=== PATIENT | female | born 1940 | race Caucasian/White ===

== ENCOUNTER 2017-01-05 21:50 | Emergency (ER) | payer MEDICARE, BC ==
[2017-01-06 00:39] LABS: Hematocrit 44 % (35-47); Hemoglobin 15.1 g/dl (12.0-16.0); Mean Corpuscular HGB Conc 34 g/dl (31-36); Mean Corpuscular Hemoglobin 30 pg (27-31); Mean Corpuscular Volume 88 fL (80-97); Mean Platelet Volume 8 um3 (7.4-10.4); Red Cell Distribution Width 13 % (10.5-15); White Blood Count 11.1 10^3/ul (3.5-10.8)
[2017-01-06 00:41] LABS: ALT 17 U/L (7-52); AST 15 U/L (13-39); Albumin 4.5 g/dL (3.2-5.2); Alkaline Phosphatase 67 U/L (34-104); Anion Gap 7 mmol/L (2-11); BUN/Creatinine Ratio 20.7 (8-20); Blood Urea Nitrogen 17 mg/dL (6-24); CO2 Carbon Dioxide 27 mmol/L (22-32); Chloride 99 mmol/L (101-111); EGFR African American 86.9 (>60); EGFR Non-African American 67.6 (>60); Globulin 3.1 g/dL (2-4); Glucose 257 mg/dL (70-100); Potassium 3.8 mmol/L (3.5-5.0); Sodium 133 mmol/L (133-145); Total Protein 7.6 g/dL (6.4-8.9)
[2017-01-06 00:53] LABS: Acetaminophen < 15 mcg/mL; Alcohol < 10 mg/dL (<10); Salicylate < 2.50 mg/dL (<30)
[2017-01-06] MEDS ORDERED: Acetaminophen TAB* 325 MG PO ONE (00:53)
[2017-01-06 01:03] LABS: TSH (Thyroid Stimulating Horm) 1.71 mcIU/mL (0.34-5.60)
[2017-01-06 01:04] LABS: Urine Bacteria 2+ (Absent); Urine Bilirubin Negative (Negative); Urine Glucose 3+(>=500 mg/dL) (Negative); Urine Nitrite Positive (Negative)
[2017-01-06 01:08] LABS: Benzodiazepine Urine Screen None Detected (None Detect)
[2017-01-06] MEDS ORDERED: diPHENhydraMINE PO* 25 MG PO ONE (03:52)
[2017-01-06] MEDS ORDERED: diPHENhydraMINE PO* 50 MG ONE (03:54)
--- NOTE | 2017-01-06 06:18 | ED ---
Kuldeep Jensen Adam, scribed for Amor Philippe on 01/05/17 at 2307 . Psychiatric Complaint - HPI Summary HPI Summary: Pt is a 76 year old female presenting with SI. She states that she got into a fight with her 's doctor at approximately 19:00 and became angry and frustrated. She states that she said she wanted to kill herself because the doctor would not listen to her. She denies having any suicidal thoughts at this time. She feels very tired but denies any CP, SOB, or any other complaints. She denies any PMHx or FMHx and she denies any Hx of alcohol/tobacco/drug use. - History Of Current Complaint Chief Complaint: EDMentalHealth Time Seen by Provider: 01/05/17 22:40 Hx Obtained From: Patient Onset/Duration: Sudden Onset, Lasting Hours, Resolved Timing: Constant Severity Initially: Moderate Severity Currently: None Character: Angry, Frustrated Aggravating Factor(s): Recent Stress - Conflict with her 's doctor Alleviating Factor(s): Other - Time Associated Signs And Symptoms: Positive: Hostile Has Suicidal: Reports: Thoughts - Allergies/Home Medications Allergies/Adverse Reactions: Allergies Allergy/AdvReac Type Severity Reaction Status Date / Time Sulfa Antibiotics Allergy Unknown Verified 01/05/17 22:24 Reaction Details PMH/Surg Hx/FS Hx/Imm Hx Previously Healthy: Yes Cardiovascular History: Denies: Hx Myocardial Infarction Respiratory History: Denies: Hx Asthma, Hx Bronchopulmonary Dysplasia, Hx Chronic Bronchitis, Hx Chronic Obstructive Pulmonary Disease (COPD), Hx Cystic Fibrosis, Hx Lung Cancer , Hx Pleural Effusion, Hx Pneumonia, Hx Pulmonary Edema, Hx Pulmonary Embolism, Hx Seasonal Allergies, Hx Sleep Apnea, Other Respiratory Problems/Disorders - Cancer History Hx Chemotherapy: No Hx Radiation Therapy: No Infectious Disease History: No Infectious Disease History: Denies: Traveled Outside the [place] in Last 30 Days - Family History Known Family History: Positive: None - Pt denies any FMHx - Social History Occupation: Retired Lives: With Family - Alcohol Use: None Alcohol Amount: denies Hx Substance Use: No Substance Use Type: Reports: None Substance Use Comment - Amount & Last Used: denies Hx Tobacco Use: No Smoking Status (MU): Never Smoked Tobacco Review of Systems Positive: Fatigue. Negative: Fever Negative: Chest Pain Negative: Shortness Of Breath All Other Systems Reviewed And Are Negative: Yes Physical Exam Triage Information Reviewed: Yes Vital Signs On Initial Exam: Initial Vitals Temp Pulse Resp BP Pulse Ox 97.8 F 96 16 2070/75 98 01/05/17 22:10 01/05/17 22:10 01/05/17 22:10 01/05/17 22:10 01/05/17 22:10 Vital Signs Reviewed: Yes Appearance: Positive: Well-Appearing, No Pain Distress Skin: Positive: Warm, Skin Color Reflects Adequate Perfusion, Dry Head/Face: Positive: Normal Head/Face Inspection Eyes: Positive: EOMI, DAVON ENT: Positive: Normal ENT inspection Neck: Positive: Supple, Nontender Respiratory/Lung Sounds: Positive: Clear to Auscultation, Breath Sounds Present Cardiovascular: Positive: RRR, Pulses are Symmetrical in both Upper and Lower Extremities Abdomen Description: Positive: Nontender, Soft Bowel Sounds: Positive: Present Musculoskeletal: Positive: Normal, Strength/ROM Intact - [place] Coma Scale Coma Scale Total: 15 Diagnostics - Vital Signs Vital Signs Temp Pulse Resp BP Pulse Ox 01/05/17 22:10 97.8 F 96 16 2069/ 98 - Laboratory Result Diagrams: 01/06/17 00:00 01/06/17 00:00 Lab Statement: Any lab studies that have been ordered have been reviewed, and results considered in the medical decision making process. - Additional Comments Diagnostic Additional Comments: Troponin I - 0.00 Course/Dx - Differential Dx/Clinical Impression Provider Diagnosis: Suicidal ideation Discharge - Discharge Plan Condition: Stable Disposition: OTHER Discharge Disposition Comment: Pending mental health evaluation Referrals: Juju Archer MD [Primary Care Provider] - The documentation as recorded by the Kuldeep kimbrough Adam accurately reflects the service I personally performed and the decisions made by me, Amor Philippe.
[2017-01-06] MEDS ORDERED: glipiZIDE TAB* 5 MG PO ONE (14:04)
[2017-01-06] MEDS ORDERED: metFORMIN* 500 MG TAB PO ONE (14:04)
[2017-01-06] MEDS ORDERED: Lisinopril TAB* 5 MG PO ONE (14:05)
[2017-01-06] MEDS ORDERED: Atenolol TAB* 50 MG PO ONE (14:06)
[2017-01-06 15:57] VITALS: BP 164/80
--- NOTE | 2017-01-08 07:30 | PN ---
Progress Note - Progress Note Note: Patient urine cultures grew 50-75,000. called patient and spoke with patient and is not having any UTI symptoms so will not treat as small amount cultured and likely contaminant.
== END 2017-01-06 15:57 | disposition home or self-care (01) ==
LOC: ED 21:50
DX: R45.851 Suicidal ideations (principal); R53.83 Other fatigue; R45.5 Hostility
CPT/HCPCS: 36415; 80053; 80307; 80320; 80329; 81003; 81015; 84443; 84484; 85025; 87077; 87086; 87186; 99283; A9270-GY; G0480

== ENCOUNTER 2017-09-04 19:59 | Inpatient (IN) | payer MEDICARE, BC ==
[2017-09-04 21:07] LABS: Hematocrit 38 % (35-47); Mean Corpuscular HGB Conc 34 g/dl (31-36); Mean Corpuscular Hemoglobin 30 pg (27-31); Mean Corpuscular Volume 87 fL (80-97); Mean Platelet Volume 7 um3 (7.4-10.4); Red Blood Count 4.35 10^6/ul (4.0-5.4); Red Cell Distribution Width 13 % (10.5-15); White Blood Count 7.5 10^3/ul (3.5-10.8)
[2017-09-04 21:25] LABS: ALT 12 U/L (7-52); AST 12 U/L (13-39); Albumin 3.8 g/dL (3.2-5.2); Alkaline Phosphatase 79 U/L (34-104); Anion Gap 6 mmol/L (2-11); BUN/Creatinine Ratio 19.2 (8-20); Blood Urea Nitrogen 15 mg/dL (6-24); CO2 Carbon Dioxide 28 mmol/L (22-32); Calcium 9.1 mg/dL (8.6-10.3); Chloride 105 mmol/L (101-111); EGFR African American 92.1 (>60); EGFR Non-African American 71.6 (>60); Globulin 2.6 g/dL (2-4); Glucose 273 mg/dL (70-100); Potassium 3.9 mmol/L (3.5-5.0); Sodium 139 mmol/L (133-145); Total Protein 6.4 g/dL (6.4-8.9)
[2017-09-04 21:46] LABS: Acetaminophen < 15 mcg/mL; Alcohol < 10 mg/dL (<10); Salicylate < 2.50 mg/dL (<30)
[2017-09-04 22:00] LABS: TSH (Thyroid Stimulating Horm) 1.32 mcIU/mL (0.34-5.60)
--- NOTE | 2017-09-04 22:10 | ED ---
Patricia Jensen Julia, scribed for Edy Salguero MD on 09/04/17 at 2022 . Psychiatric Complaint - HPI Summary HPI Summary: This patient is a 76 year old F brought in by police to [facility] with chief complaint of SI worse since earlier today. She reports "my said I was going to kill myself". The patient rates the pain 0/10 in severity. Symptoms alleviated by nothing. Patient denies history of mental health or use of medication. - History Of Current Complaint Time Seen by Provider: 09/04/17 20:06 Hx Obtained From: Patient Onset/Duration: Still Present Timing: Constant Alleviating Factor(s): Nothing Has Suicidal: Reports: Thoughts - Allergies/Home Medications Allergies/Adverse Reactions: Allergies Allergy/AdvReac Type Severity Reaction Status Date / Time Sulfa Antibiotics Allergy Unknown Verified 01/05/17 22:24 Reaction Details PMH/Surg Hx/FS Hx/Imm Hx Cardiovascular History: Denies: Hx Myocardial Infarction Respiratory History: Denies: Hx Asthma, Hx Bronchopulmonary Dysplasia, Hx Chronic Bronchitis, Hx Chronic Obstructive Pulmonary Disease (COPD), Hx Cystic Fibrosis, Hx Lung Cancer , Hx Pleural Effusion, Hx Pneumonia, Hx Pulmonary Edema, Hx Pulmonary Embolism, Hx Seasonal Allergies, Hx Sleep Apnea, Other Respiratory Problems/Disorders Psychiatric History: Denies: Hx Eating Disorder - Cancer History Hx Chemotherapy: No Hx Radiation Therapy: No - Family History Known Family History: Positive: Diabetes - brother Negative: Cardiac Disease - Social History Alcohol Use: None Alcohol Amount: denies Hx Substance Use: No Substance Use Type: Reports: None Substance Use Comment - Amount & Last Used: denies Hx Tobacco Use: No Smoking Status (MU): Never Smoked Tobacco Review of Systems Negative: Fever Positive: Other - SI All Other Systems Reviewed And Are Negative: Yes Physical Exam - Summary Physical Exam Summary: Appearance: The patient is well-nourished in no acute distress and in no acute pain. Skin: The skin is warm and dry and skin color reflects adequate perfusion. HEENT: The head is normocephalic and atraumatic. The pupils are equal and reactive. The conjunctivae are clear and without drainage. Nares are patent and without drainage. Mouth reveals moist mucous membranes and the throat is without erythema and exudate. The external ears are intact. The ear canals are patent and without drainage. The tympanic membranes are intact. Neck: the neck is supple with full range of motion and non-tender. There are no carotid bruits. There is no neck vein distension. Respiratory: Chest is non-tender. Lungs are clear to auscultation and breath sounds are symmetrical and equal. Cardiovascular: Heart is regular rate and rhythm. There is no murmur or rub auscultated. There is no peripheral edema and pulses are symmetrical and equal. Abdomen: The abdomen is soft and non-tender. There are normal bowel sounds heard in all four quadrants and there is no organomegaly palpated. Musculoskeletal: There is no back tenderness noted. Extremities are non-tender with full range of motion. There is good capillary refill. There is no peripheral edema or calf tenderness elicited. Neurological: Patient is alert and oriented to person, place and time. The patient has symmetrical motor strength in all four extremities. Cranial nerves are grossly intact. Deep tendon reflexes are symmetrical and equal in all four extremities. Psychiatric: The patient has an appropriate affect and does not exhibit any anxiety or depression. Triage Information Reviewed: Yes Vital Signs On Initial Exam: Initial Vitals Temp Pulse Resp BP Pulse Ox 97.6 F 88 18 151/72 97 09/04/17 20:00 09/04/17 20:00 09/04/17 20:00 09/04/17 20:00 09/04/17 20:00 Vital Signs Reviewed: Yes Diagnostics - Vital Signs Vital Signs Temp Pulse Resp BP Pulse Ox 09/04/17 20:00 97.6 F 88 18 151/72 97 - Laboratory Lab Results: Lab Results 09/04/17 09/04/17 Range/Units 20:55 20:55 WBC 7.5 (3.5-10.8) 10^3/ul RBC 4.35 (4.0-5.4) 10^6/ul Hgb 13.0 (12.0-16.0) g/dl Hct 38 (35-47) % MCV 87 (80-97) fL MCH 30 (27-31) pg MCHC 34 (31-36) g/dl RDW 13 (10.5-15) % Plt Count 225 (150-450) 10^3/ul MPV 7 L (7.4-10.4) um3 Neut % (Auto) 69.5 (38-83) % Lymph % (Auto) 18.6 L (25-47) % [place] % (Auto) 6.0 (1-9) % Eos % (Auto) 4.0 (0-6) % Baso % (Auto) 1.9 (0-2) % Absolute Neuts (auto) 5.2 (1.5-7.7) 10^3/ul Absolute Lymphs (auto) 1.4 (1.0-4.8) 10^3/ul Absolute Monos (auto) 0.4 (0-0.8) 10^3/ul Absolute Eos (auto) 0.3 (0-0.6) 10^3/ul Absolute Basos (auto) 0.1 (0-0.2) 10^3/ul Absolute Nucleated RBC 0 10^3/ul Nucleated RBC % 0 Sodium 139 (133-145) mmol/L Potassium 3.9 (3.5-5.0) mmol/L Chloride 105 (101-111) mmol/L Carbon Dioxide 28 (22-32) mmol/L Anion Gap 6 (2-11) mmol/L BUN 15 (6-24) mg/dL Creatinine 0.78 (0.51-0.95) mg/dL Est GFR ( Amer) 92.1 (>60) Est GFR (Non-Af Amer) 71.6 (>60) BUN/Creatinine Ratio 19.2 (8-20) Glucose 273 H (70-100) mg/dL Calcium 9.1 (8.6-10.3) mg/dL Total Bilirubin 0.40 (0.2-1.0) mg/dL AST 12 L (13-39) U/L ALT 12 (7-52) U/L Alkaline Phosphatase 79 (34-104) U/L Total Protein 6.4 (6.4-8.9) g/dL Albumin 3.8 (3.2-5.2) g/dL Globulin 2.6 (2-4) g/dL Albumin/Globulin Ratio 1.5 (1-3) TSH 1.32 (0.34-5.60) mcIU/mL Salicylates < 2.50 (<30) mg/dL Acetaminophen < 15 mcg/mL Serum Alcohol < 10 (<10) mg/dL Result Diagrams: 09/04/17 20:55 09/04/17 20:55 Lab Statement: Any lab studies that have been ordered have been reviewed, and results considered in the medical decision making process. Course/Dx - Course Course Of Treatment: Ms. Brown apparently has a paranoid dementia and threatens suicide when she is left alone. She has not been answering the phone or door or letting anyone in to check on her secondary to her paranoia. A 941 was filled out and she is here to have a MHE. She is medically cleared at this point with normal labs and is in the Flex Unit. - Differential Dx/Clinical Impression Provider Diagnosis: Senile paranoid dementia Discharge - Discharge Plan Condition: Stable Disposition: OTHER Discharge Disposition Comment: Signed out to Dr. Encinas at change of shift Referrals: Juju Archer MD [Primary Care Provider] - The documentation as recorded by the Patricia kimbrough Julia accurately reflects the service I personally performed and the decisions made by me, Edy Salguero MD.
[2017-09-05] MEDS ORDERED: Zolpidem TAB* 10 MG PO ONE (00:23)
[2017-09-05] MEDS ORDERED: NS 0.9% 1000 ML* 1,000 ML IV ONE (06:12)
[2017-09-05 08:18] LABS: Urine Bilirubin Negative (Negative); Urine Glucose Negative (Negative); Urine Nitrite Negative (Negative)
[2017-09-05 08:30] LABS: Benzodiazepine Urine Screen None Detected (None Detect)
--- NOTE | 2017-09-05 13:40 | PN ---
Progress Note - Progress Note Date of Service: 09/05/17 Note: Consult for Medical Decision Making Capacity S: Psychiatry is asked to see this 76 y.o. 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 The patient now denies SI and states her preference to return home. She is aware that caregivers here in the ED do not believe that she can safely take care of herself. Lack of self-care is made evident here in the ED as she appeared naked out of her room at one point and fell down from an unsteady gait when being transferred to the [facility]. She insists that she needs to be home to take care of her aging , but he is currently hospitalized on 3S and is pending transfer to sub-acute rehab. I was able to speak with , Cody Velazco, who reports that the patient is not safe home alone. He notes that it is he who takes care of her and that she often "sundowns" in the evenings, making suicidal threats, yelling at him and showing poor orientation to time and place. Currently, the patient is sitting in ED room 10. She is dishevelled and there is blood streaking up her patient gown from an unknown source. She is disoriented to time but not place. She cannot give me any statement to the effect of why the medical staff does not feel safe allowing her to go home. O: the patient is an aging white female with reddish marshall hair, eye glasses and a blood splattered patient gown, who is hirsute and poorly groomed. She denies SI or HI. She denies psychosis, AH or VH. She scores only 21/30 on the MMSE, losing points for temporal orientation, recall, attention and command-following. A/P: Capacity: the patient lacks capacity to make informed medical decisions as she cannot communicate what the primary providers' concerns are, nor what treatment/intervention they are making.
[2017-09-05] MEDS ORDERED: Ondansetron INJ* 2 MG/ML VIAL IV PRN (13:58)
[2017-09-05] MEDS ORDERED: Dextrose 50% Syringe 50 ML* 25 GM/50 ML SYRINGE IV PUSH PRN (13:58)
[2017-09-05] MEDS ORDERED: Acetaminophen TAB* 325 MG PO PRN (13:58)
[2017-09-05] MEDS: Atenolol TAB* 50 MG PO SCH ×2 (14:30→21:55)
[2017-09-05] MEDS: FLUoxetine CAP* 20 MG PO SCH (14:30)
[2017-09-05] MEDS: Lisinopril TAB* 5 MG PO SCH (14:30)
[2017-09-05] MEDS: Heparin VIAL(*) 5000 UNITS/ML VIAL (FIVE THOUSAND) SUBCUT SCH ×2 (14:31→21:56)
[2017-09-05] MEDS: Insulin LISPRO* 1 UNITS UNIT SUBCUT SCH (17:45)
--- NOTE | 2017-09-05 20:04 | HP ---
CC: Dr. Archer * HISTORY AND PHYSICAL: DATE OF ADMISSION: 09/05/17 PRIMARY CARE PROVIDER: Dr. Archer. ATTENDING PHYSICIAN WHILE IN THE HOSPITAL: Dr. Janee Bustamante * (report dictated by Jeremy Hall NP). CHIEF COMPLAINT: Suicidal ideation. HISTORY OF PRESENT ILLNESS: Ms. Gong is a 76-year-old female patient that presented to our ER last night after police were called for welfare check by the . Police stated the says his had told the that she wanted to kill herself by jumping off a bridge or drowning in the ocean. The patient was brought in to the hospital for evaluation. She was evaluated here, was cleared medically and evaluated by Psychiatry. There was concern because apparently the patient's is actually here in the hospital and there was concern on the staff that the patient would not be able to go home appropriately by herself. The patient's was admitted last night and the patient does have underlying dementia and it was felt that she lacked capacity to make a decision. She says she feels well. She says that she does not feel suicidal anymore, she says she said that when her threatened her with going to a shelter. The patient denied having any chest pain or shortness of breath. No abdominal pain. No recent fevers or chills, but because of the safety issues at home and the fact that she lacks capacity to make a decision regarding her disposition as deemed by Psychiatry, it was felt that it would be best to admit the patient in jail care and we were asked to evaluate for admission. PAST MEDICAL HISTORY: Significant for: 1. Dementia. 2. Hypertension. 3. Diabetes. 4. Depression. PAST SURGICAL HISTORY: She says she has had a cholecystectomy. MEDICATIONS: Her home meds include: 1. Seroquel 25 mg p.o. daily. 2. Lisinopril 2.5 mg daily. 3. Prozac 20 mg daily. 4. Metformin 500 mg daily. 5. Atenolol 50 mg p.o. b.i.d. 6. Glipizide 5 mg p.o. daily. ALLERGIES TO MEDICATIONS: Include SULFA DRUGS. FAMILY HISTORY: She says both her parents of old age. She specifically denied that her parents had any heart disease, cancers, strokes, or diabetes. 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 Her surrogate decision maker is her , Cody. She denies any alcohol or tobacco abuse. REVIEW OF SYSTEMS: There is no documented fever. She denied having any significant weight change. There was no double vision. She denies having any ear discharge. There was no rhinorrhea. No sore throat. No thyroid enlargement. She denied having any chest pain. There was no orthopnea, no nocturnal dyspnea. There was no abdominal pain. No nausea, no vomiting. There was no dysuria, no frequency. No seizure, no loss of consciousness. No pruritus and no skin ulcerations. Review of 14 systems was completed, all others negative. PHYSICAL EXAMINATION GENERAL: At this time, Ms. Gong is a 76-year-old female patient. She is sitting in the chair in the ER room 10. She appears to be well nourished, well developed. She does not appear to be in any acute distress. VITAL SIGNS: Blood pressure 167/87, pulse 91, respirations 18, O2 sat 96%, temperature 97.8. HEENT: Head: Atraumatic, normocephalic. Eyes: EOMs intact. Sclerae anicteric, not pale. Throat: Oral mucosa appears to be moist. No oropharyngeal erythema. NECK: Supple. LUNGS: Clear to auscultation bilaterally. No wheezes, rales, or rhonchi. HEART: Sounds S1, S2. Regular rate and rhythm. No murmurs, rubs, or gallops. ABDOMEN: Soft, flat, nontender. Bowel sounds are present. EXTREMITIES: Pulses were 2+ throughout. She is moving all 4 extremities with 5 /5 strength. NEUROLOGIC: She is awake, she is alert, she is oriented to herself. Her speech is clear. Tongue is midline. She had no gross focal deficits. SKIN: Intact. LABORATORY DATA: WBC 7.5, RBC of 4.35, hemoglobin 13.0, hematocrit 38, platelet count of 225. The sodium was 139, potassium 3.9, chloride of 105, bicarb 28, BUN 15, creatinine 0.78, glucose 273, calcium 9.1. Total bili 0.4, AST 12, ALT 12, alk phos 79. TSH 1.32. Urine is negative. Toxicology negative. Old medical records were reviewed. ASSESSMENT AND PLAN: Ms. Gong is a 76-year-old female patient coming in to the ED today, again initially brought in for suicidal ideation and this has now been cleared. However, it was found out that the patient was living alone and there were concerns for safety issues. She was evaluated by Psychiatry who has felt that she lacked capacity to make informed medical decisions. At this point, we were asked to evaluate. She will be admitted under inpatient status for: 1. Unsafe discharge plan and suicidal ideation. Again, at this point, she is evaluated by Psychiatry. She is currently not suicidal. She was felt not to be appropriate for psychiatric admission, but however, it was felt that she was unsafe at home. The patient will be brought in to the jail care until we can find safe placement for her as her primary caregiver, her , is here in the hospital as well and she has no one to care for her at home and it was felt because of her underlying cognitive issues that she would not be safe to be cared for by herself. So, until we find a safe discharge plan, we will be admitting her in our custody. 2. Dementia. Continue meds as prescribed. 3. History of diabetes. I will put her on lispro sliding scale. 4. Hypertension. Continue meds as prescribed. 5. Depression. Continue meds as prescribed. 6. DVT prophylaxis. We will place her on heparin subcu. 7. Fluids, electrolytes, and nutrition. She can have a consistent carb diet. TIME SPENT: On the admission was 60 minutes, greater than half the time was spent [id number] with the patient obtaining my history and physical; other half time was spent going over the plan of care with the patient and implementing plan of care. I did discuss the plan of care with my attending, Dr. Bustamante; she is in agreement. JEREMY HALL, FREDY [id number]/CPS #: [id number] BRYANT
[2017-09-05] MEDS ORDERED: QUEtiapine TAB* 25 MG PO SCH (21:00)
--- NOTE | 2017-09-06 02:59 | ED ---
Tayo Jensen Gabriel, scribed for Mary Light MD on 09/05/17 at 1250 . Progress - Progress Note Progress Note: This patient was signed out from Dr. Encinas, pending disposition, awaiting MHE. Dr. Dobbins states she failed mini mental status test and she does not have mental capacity to care for herself. She threatens to kill herself and go to [place]. Social admit pending care home admit. She does not meet inpatient criteria for psychiatric admittance. The patients condition is stable and will be admitted to [facility] with Dx of senile paranoid dementia. - Consult/PCP Time Called: 08:00 - Dr. Dobbins Course/Dx - Course Course Of Treatment: Ms. Brown apparently has a paranoid dementia and threatens suicide when she is left alone. She has not been answering the phone or door or letting anyone in to check on her secondary to her paranoia. A 941 was filled out and she is here to have a MHE. She is medically cleared at this point with normal labs and is in the Flex Unit. - Diagnoses Provider Diagnoses: Senile paranoid dementia - Provider Notifications Discussed Care Of Patient With: Janee Bustamante Time Discussed With Above Provider: 13:33 Instructed by Provider To: Admit As Inpatient - Discussed patient care with Dr. Bustamante, hospitalist. She has agreed to admit the patient as a long-term inpatient. The documentation as recorded by the Tayo kimbrough Gabriel accurately reflects the service I personally performed and the decisions made by , Mary Light MD.
[2017-09-06] MEDS: Heparin VIAL(*) 5000 UNITS/ML VIAL (FIVE THOUSAND) SUBCUT SCH (06:08)
[2017-09-06 08:44] LABS: Hematocrit 37 % (35-47); Hemoglobin 12.6 g/dl (12.0-16.0); Mean Corpuscular HGB Conc 34 g/dl (31-36); Mean Corpuscular Hemoglobin 29 pg (27-31); Mean Corpuscular Volume 87 fL (80-97); Mean Platelet Volume 8 um3 (7.4-10.4); Red Blood Count 4.28 10^6/ul (4.0-5.4); Red Cell Distribution Width 14 % (10.5-15); White Blood Count 5.7 10^3/ul (3.5-10.8)
[2017-09-06 09:41] LABS: Potassium 3.7 mmol/L (3.5-5.0)
[2017-09-06 09:42] LABS: BUN/Creatinine Ratio 16.2 (8-20); Calcium 8.9 mg/dL (8.6-10.3); EGFR African American 97.9 (>60); EGFR Non-African American 76.1 (>60)
[2017-09-06] MEDS: Insulin LISPRO* 1 UNITS UNIT SUBCUT SCH ×2 (09:54→12:10)
[2017-09-06] MEDS: Atenolol TAB* 50 MG PO SCH (09:54)
[2017-09-06] MEDS: Lisinopril TAB* 5 MG PO SCH (09:54)
[2017-09-06] MEDS: FLUoxetine CAP* 20 MG PO SCH (09:54)
--- NOTE | 2017-09-06 10:33 | PN ---
Subjective Date of Service: 09/06/17 Interval History: Patient seen and examined at bedside. Ms. Gong states "I'm depressed." When asked for how long, she reports "last night." I attempted to engage her in conversation but she reports "No" when asked if she would like to eat or get up. She refuses most of the physical examination and complains of hip pain from laying in bed but refuses to get out of bed. She states, "Maybe I should lay here and ." Family History: Unchanged from Admission Social History: Unchanged from Admission Past Medical History: Unchanged from Admission Objective Active Medications: Acetaminophen (Tylenol Tab*) 650 mg PO Q4H PRN PRN Reason: FEVER/PAIN Last Admin: 09/05/17 21:55 Dose: 650 mg Atenolol (Tenormin Tab*) 50 mg PO BID [facility] Last Admin: 09/06/17 09:54 Dose: Not Given Fluoxetine HCl (Prozac Cap*) 20 mg PO QAM [facility] Last Admin: 09/06/17 09:54 Dose: Not Given Heparin Sodium (Porcine) (Heparin Vial(*)) 5,000 units SUBCUT Q8HR [facility] Last Admin: 09/06/17 06:08 Dose: 5,000 units Insulin Human Lispro (Humalog*) 0 units SUBCUT AC [facility] PRN Reason: Protocol Last Admin: 09/06/17 09:54 Dose: Not Given Lisinopril (Prinivil Tab*) 2.5 mg PO DAILY [facility] Last Admin: 09/06/17 09:54 Dose: Not Given Quetiapine Fumarate (Seroquel Tab*) 25 mg PO BEDTIME [facility] Last Admin: 09/05/17 21:55 Dose: 25 mg Vital Signs - 8 hr 09/06/17 09/06/17 09/06/17 03:12 07:42 08:00 Temperature 98.0 F 97.9 F Pulse Rate 65 66 Respiratory 16 16 16 Rate Blood Pressure 113/42 107/49 (mmHg) O2 Sat by Pulse 96 99 Oximetry Oxygen Devices in Use Now: None Appearance: Disheveled elderly female, lying in bed, in NAD. Limited assessment per patient cooperation Eyes: No Scleral Icterus Ears/Nose/Mouth/Throat: Mucous Membranes Moist Respiratory: Symmetrical Chest Expansion and Respiratory Effort, Clear to Auscultation Cardiovascular: RRR Neurological: - - alert, oriented to self Result Diagrams: 09/06/17 08:04 09/06/17 08:04 Additional Lab and Data: Lab Results 09/04/17 09/04/17 Range/Units 20:55 20:55 WBC 7.5 (3.5-10.8) 10^3/ul RBC 4.35 (4.0-5.4) 10^6/ul Hgb 13.0 (12.0-16.0) g/dl Hct 38 (35-47) % MCV 87 (80-97) fL MCH 30 (27-31) pg MCHC 34 (31-36) g/dl RDW 13 (10.5-15) % Plt Count 225 (150-450) 10^3/ul MPV 7 L (7.4-10.4) um3 Neut % (Auto) 69.5 (38-83) % Lymph % (Auto) 18.6 L (25-47) % Pratt % (Auto) 6.0 (1-9) % Eos % (Auto) 4.0 (0-6) % Baso % (Auto) 1.9 (0-2) % Absolute Neuts (auto) 5.2 (1.5-7.7) 10^3/ul Absolute Lymphs (auto) 1.4 (1.0-4.8) 10^3/ul Absolute Monos (auto) 0.4 (0-0.8) 10^3/ul Absolute Eos (auto) 0.3 (0-0.6) 10^3/ul Absolute Basos (auto) 0.1 (0-0.2) 10^3/ul Absolute Nucleated RBC 0 10^3/ul Nucleated RBC % 0 Sodium 139 (133-145) mmol/L Potassium 3.9 (3.5-5.0) mmol/L Chloride 105 (101-111) mmol/L Carbon Dioxide 28 (22-32) mmol/L Anion Gap 6 (2-11) mmol/L BUN 15 (6-24) mg/dL Creatinine 0.78 (0.51-0.95) mg/dL Est GFR ( Amer) 92.1 (>60) Est GFR (Non-Af Amer) 71.6 (>60) BUN/Creatinine Ratio 19.2 (8-20) Glucose 273 H (70-100) mg/dL Calcium 9.1 (8.6-10.3) mg/dL Total Bilirubin 0.40 (0.2-1.0) mg/dL AST 12 L (13-39) U/L ALT 12 (7-52) U/L Alkaline Phosphatase 79 (34-104) U/L Total Protein 6.4 (6.4-8.9) g/dL Albumin 3.8 (3.2-5.2) g/dL Globulin 2.6 (2-4) g/dL Albumin/Globulin Ratio 1.5 (1-3) TSH 1.32 (0.34-5.60) mcIU/mL Salicylates < 2.50 (<30) mg/dL Acetaminophen < 15 mcg/mL Serum Alcohol < 10 (<10) mg/dL Assess/Plan/Problems-Billing Assessment: This is a 76 yo female who has been evaluated by psych and diagnosed with dementia with behavioral disturbances and determined to lack capacity for self care. She was initially evaluated for suicidal ideation, determined not to be appropriate for psych eval, and recommended for placement due to self care deficits. - Patient Problems (1) Dementia with behavioral disturbance Code(s): F03.91 - UNSPECIFIED DEMENTIA WITH BEHAVIORAL DISTURBANCE Comment: Patient does not meet criteria for inpatient psychiatric admittance Deemed to not have capacity for self care or disposition from hospital Plan for discharge to SNF, pending placement is aware Continue seroquel and fluoxetine. (2) Type 2 diabetes mellitus Comment: Continue home metformin and glipizide when taking PO. (3) Depression Code(s): F32.9 - MAJOR DEPRESSIVE DISORDER, SINGLE EPISODE, UNSPECIFIED Comment: Continue seroquel and fluoxetine. (4) HTN (hypertension) Code(s): I10 - ESSENTIAL (PRIMARY) HYPERTENSION Comment: Normotensive Continue home lisinopril (5) DVT prophylaxis Comment: SQ heparin Status and Disposition: Inpatient. D/c to SNF when available.
[2017-09-06 12:35] VITALS: BP 152/82
--- NOTE | 2017-09-06 13:34 | DS ---
CC: Dr. Juju Archer; [facility] DATE OF ADMISSION: 09/05/2017. DATE OF DISCHARGE: 09/06/2017. PROVIDER: Karen Rangel NP. ATTENDING PHYSICIAN: Dr. Katy Ross (as dictated by Karen Rangel NP). PRIMARY CARE PHYSICIAN: Dr. Juju Archer. CONSULTING PSYCHIATRIST: Dr. Seth Dobbins. PRIMARY DISCHARGE DIAGNOSES: 1. Suicidal ideation. 2. Dementia with paranoid behaviors. 3. Patient deemed to lack capacity. SECONDARY DIAGNOSES: 1. Hypertension. 2. Diabetes. 3. Depression. MEDICATIONS AT DISCHARGE: 1. Seroquel 25 mg at bedtime. 2. Lisinopril 2.5 mg daily. 3. Fluoxetine 20 mg q.a.m. 4. Metformin 500 mg daily. 5. Atenolol 50 mg b.i.d. 6. Glipizide XL 5 mg daily. HOSPITAL COURSE OF STAY: For full details, please refer to the history and physical provided by Pierre Hall NP on 09/05/2017. In summary, Ms. Gong is a 76-year-old female who presented to the ER on September 04 in the evening time. The police were called to the patient's house for a welfare check as her was concerned for her safety. The police stated that the told them that his had told the that she wanted to kill herself by jumping off a bridge or drowning in the ocean. Ms. Gong was subsequently brought in for further evaluation. She was evaluated in the ER, was cleared medically and then evaluated by Psychiatry. There was additional concern because the patient's is currently an inpatient and will be discharged to [facility] and will not be able to provide assistance for the patient at home. She was seen by Psychiatry and it was determined that she lacked capacity to make safe decisions in regards to her disposition and welfare. Consequently, she was admitted as a penitentiary patient and admitted to the hospital for further evaluation and help with disposition. Here in the hospital, she has no acute complaints. Her laboratory work-up is benign other than mildly elevated glucose secondary to the patient not taking her medications. While she has been here, she has been refusing to take her medications. When I asked to talk to her this morning, she tells me that she is depressed since last evening when they took her capacity away. She is refusing to allow staff to assess her, but states that her hips hurt. When asked to elaborate, she states that her hips hurt when she does not move around as much, but then she refuses to get up and move around. The patient was observed moving in the room when staff was not attending to her. No other acute findings or issues have been identified. Her vital signs have been stable. Plan of care was discussed with her . He was being discharged to [facility]. The patient's MOLST form was updated and it was determined that she will be a DNR and this was signed by her healthcare proxy who is her . No acute findings or concerns noted here in the hospital to warrant further stay. Secondary to lack of capacity and concerns for her safety, the patient will be discharged to [facility]. The family has been notified of this and is in agreement with the plan of care. DIET: Consistent carbohydrate diet. ACTIVITY: As tolerated. CONDITION ON DISCHARGE: Guarded. DISPOSITION: To [facility]. TIME SPENT: Time spent on this discharge was approximately 35 minutes. Again, this is only a brief summary of the patient's hospital course of stay. For full details, please refer to the full medical record. If you have any further questions or need further assistance, please feel free to contact me at [phone]. KAREN RANGEL NP [id number]/CPS #: [id number] BRYANT
== END 2017-09-06 14:35 | DRG 884 ==
LOC: ED 19:59 → MED 09-05 13:55
PROVIDERS: ADMIT Internal Medicine; ATTEND Hospitalist
DX: F03.91 Unspecified dementia, unspecified severity, with behavioral disturbance (principal); R45.851 Suicidal ideations; E11.9 Type 2 diabetes mellitus without complications; I10 Essential (primary) hypertension; F32.9 Major depressive disorder, single episode, unspecified; Z83.3 Family history of diabetes mellitus; Z88.2 Allergy status to sulfonamides
CPT/HCPCS: 36415; 80048; 80053; 80307; 80320; 80329; 81003; 84443; 85025; 85610; A9270-GY; G0480; J1644

== ENCOUNTER 2017-12-10 11:12 | Inpatient (IN) | payer MEDICARE, BC ==
[2017-12-10 12:13] LABS: ABS Basophils 0 10^3/ul (0-0.2); ABS Eosinophils 0.1 10^3/ul (0-0.6); ABS Lymphocytes 0.8 10^3/ul (1.0-4.8); ABS Monocytes 0.8 10^3/ul (0-0.8); ABS Neutrophils 4.5 10^3/ul (1.5-7.7); ABS Nucleated RBC 0 10^3/ul; Eosinophil % 2.2 % (0-6); Hematocrit 38 % (35-47); Hemoglobin 12.9 g/dl (12.0-16.0); Lymphocyte % 13.3 % (25-47); Mean Corpuscular HGB Conc 34 g/dl (31-36); Mean Corpuscular Hemoglobin 30 pg (27-31); Mean Corpuscular Volume 86 fL (80-97); Mean Platelet Volume 7.3 um3 (7.4-10.4); Nucleated Red Blood Cells % 0.1; Platelet Count 236 10^3/ul (150-450); Red Blood Count 4.35 10^6/ul (4.0-5.4); Red Cell Distribution Width 15 % (10.5-15); White Blood Count 6.3 10^3/ul (3.5-10.8)
[2017-12-10 12:28] LABS: EGFR Non-African American 70.4 (>60)
[2017-12-10 13:08] LABS: Urine Appearance Clear; Urine Blood Negative (Negative); Urine Color Colorless; Urine Ketones Negative (Negative); Urine Protein Negative (Negative); Urine Specific Gravity 1.002 (1.010-1.030); Urine Urobilinogen Negative (Negative)
--- NOTE | 2017-12-10 19:30 | ED ---
Patricia Jensen Julia, scribed for Amor Philippe on 12/10/17 at 1153 . Psychiatric Complaint - HPI Summary HPI Summary: This patient is a 77 year old F BIBA to [facility] from [facility] due to suicidal statement. Patient states, I always want to hurt myself, but denies a plan. She states SI has been occurring for the past ten years. She denies any medical complaints. - History Of Current Complaint Chief Complaint: EDMentalHealth Time Seen by Provider: 12/10/17 11:25 Hx Obtained From: Patient Onset/Duration: Other - years Timing: Constant Character: Depressed Has Suicidal: Reports: Thoughts. Denies: With A Plan - Allergies/Home Medications Allergies/Adverse Reactions: Allergies Allergy/AdvReac Type Severity Reaction Status Date / Time Sulfa (Sulfonamide Allergy Unknown Verified 12/10/17 11:18 Antibiotics) Reaction Details Home Medications: Home Medications Acetaminophen TAB* [Tylenol TAB*] 325 mg PO Q6H PRN 12/10/17 [History Confirmed 12/10/17] Atenolol TAB* [Tenormin TAB* 50 MG] 50 mg PO 0900,2100 12/10/17 [History Confirmed 12/10/17] FLUoxetine CAP* [PROzac CAP*] 20 mg PO QAM 12/10/17 [History Confirmed 12/10/17] Lisinopril [Lisinopril 2.5 MG-] 2.5 mg PO QAM 12/10/17 [History Confirmed ] PMH/Surg Hx/FS Hx/Imm Hx Endocrine/Hematology History: Reports: Hx Diabetes Cardiovascular History: Reports: Hx Hypertension Denies: Hx Myocardial Infarction Respiratory History: Denies: Hx Asthma, Hx Bronchopulmonary Dysplasia, Hx Chronic Bronchitis, Hx Chronic Obstructive Pulmonary Disease (COPD), Hx Cystic Fibrosis, Hx Lung Cancer , Hx Pleural Effusion, Hx Pneumonia, Hx Pulmonary Edema, Hx Pulmonary Embolism, Hx Seasonal Allergies, Hx Sleep Apnea, Other Respiratory Problems/Disorders Sensory History: Reports: Hx Contacts or Glasses Denies: Hx Hearing Aid Opthamlomology History: Reports: Hx Contacts or Glasses Neurological History: Reports: Hx Dementia - paranoid Psychiatric History: Denies: Hx Eating Disorder - Cancer History Hx Chemotherapy: No Hx Radiation Therapy: No Infectious Disease History: No Infectious Disease History: Denies: Traveled Outside the [place] in Last 30 Days - Family History Known Family History: Positive: Diabetes - brother Negative: Cardiac Disease - Social History [facility]: [facility] Alcohol Use: Rare Alcohol Amount: denies Hx Substance Use: No Substance Use Type: Reports: None Substance Use Comment - Amount & Last Used: denies Hx Tobacco Use: No Smoking Status (MU): Never Smoked Tobacco Review of Systems Constitutional: Negative Positive: Depressed All Other Systems Reviewed And Are Negative: Yes Physical Exam - Summary Physical Exam Summary: Appearance: Well appearing, no pain distress Skin: warm, dry, reflects adequate perfusion Head/face: normal Eyes: EOMI, DAVON ENT: normal Neck: supple, non-tender Respiratory: CTA, breath sounds present Cardiovascular: RRR, pulses symmetrical Abdomen: non-tender, soft Bowel: present Musculoskeletal: normal, strength/ROM intact Neuro: normal, sensory motor intact, A&Ox3 Psych: Depressed affect Triage Information Reviewed: Yes Vital Signs On Initial Exam: Initial Vitals Temp Pulse Resp BP Pulse Ox 98.9 F 73 18 167/63 95 12/10/17 11:13 12/10/17 11:13 12/10/17 11:13 12/10/17 11:13 12/10/17 11:13 Vital Signs Reviewed: Yes Diagnostics - Vital Signs Vital Signs Temp Pulse Resp BP Pulse Ox 12/10/17 11:13 98.9 F 73 18 167/63 95 - Laboratory Result Diagrams: 12/10/17 11:58 12/10/17 11:58 Lab Statement: Any lab studies that have been ordered have been reviewed, and results considered in the medical decision making process. - EKG 1146 Cardiac Rate: NL - 68 BPM EKG Rhythm: Sinus Rhythm EKG Interpretation: no acute changes Course/Dx - Course Course Of Treatment: Patient is brought from [facility] due to multiple suicidal statements. Patient states, I always want to hurt myself, but denies a plan. She states SI has been occurring for the past ten years. She denies any medical complaints. An EKG is of no acute concern. Lab results are obtained and pt is cleared for mental health evaluation. Patient will be admitted by Dr. Armenta, for further social work evaluation. - Differential Dx/Clinical Impression Provider Diagnosis: Depression, Suicidal ideation - Physician Notifications Discussed Care Of Patient With: Edmond Armenta Time Discussed With Above Provider: 19:15 Instructed by Provider To: Admit As Inpatient Discharge - Sign-Out/Discharge Documenting (check all that apply): Discharge - Patient is admitted by Dr. Armenta - Discharge Plan Condition: Fair Disposition: ADMITTED TO [facility] Referrals: Juju Archer MD [Primary Care Provider] - The documentation as recorded by the Patricia kimbrough Julia accurately reflects the service I personally performed and the decisions made by , Amor Philippe.
[2017-12-10] MEDS ORDERED: CMCS:Melatonin (NF) 3 MG TAB PO PRN (21:13)
[2017-12-10] MEDS ORDERED: traMADol TAB* 50 MG PO PRN (21:13)
--- NOTE | 2017-12-10 22:37 | HP ---
H&P (Free Text) History and Physical: PCP: Jennifer Archer MD Date/Time: 12/10/2017 2110 CC: cough HPI: Mrs Gong is a 77YO female currently at [facility] who was sent in for suicidality. For reasons that are unclear at this time, she is unable to be returned to [facility] prompting request for overnight observation for social security benefits interviewer assistance in the AM. 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 During her last admission in Aug 2017, she had her capacity for medical decision making revoked and reportedly has yet to have it reinstated. PMedHx DM2 HTN dementia depression w/ suicidality lacks medical decision capacity Ambulatory Orders QUEtiapine TAB* [Seroquel TAB*] 25 mg PO BEDTIME 09/05/17 glipiZIDE TAB.XL* [Glucotrol Xl*] 5 mg PO QAM 09/05/17 metFORMIN* [Glucophage 500 MG TAB *] 500 mg PO DAILY 09/05/17 Acetaminophen TAB* [Tylenol TAB*] 325 mg PO Q6H PRN 12/10/17 Atenolol TAB* [Tenormin TAB* 50 MG] 50 mg PO 0900,2100 12/10/17 FLUoxetine CAP* [PROzac CAP*] 20 mg PO QAM 12/10/17 Lisinopril [Lisinopril 2.5 MG-] 2.5 mg PO QAM 12/10/17 Allergies Sulfa (Sulfonamide Antibiotics) Allergy (Verified 12/10/17 11:18) Unknown Reaction Details PSurgHx cholecystectomy SocHx: no tobacco, alcohol, or recreational drug HX; , currently residing at [facility]; lacks medical decision capacity; 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; DNR code status FamHx: Mother & Father passed of "old age", denies HX CAD, CVA, cancer ROS: as above, otherwise reviewed and all were negative vitals: Vital Signs Temp 37.6 C 12/10/17 23:19 Pulse 80 12/10/17 23:19 Resp 17 12/10/17 23:19 BP 157/72 12/10/17 23:19 Pulse Ox 100 12/10/17 23:19 Intake & Output 12/10/17 12/10/17 12/11/17 11:59 23:59 11:59 Weight 68.039 kg 87.861 kg Constitutional: NAD, normally developed, overweight white female HEENM: atraumatic; sclera/conjunctiva: anicteric/clear; hearing: clinically intact; oropharynx: clear, moist Neck: soft tissue: non-tender; thyroid: normal Pulmonary: clear to auscultation bilaterally, good aeration, no accessory muscle use CV: RR/RR, normal S1S2, no carotid bruit, no jugular venous distention, 2+ B DP/ PT, no edema Abdominal: soft, non-distended, non-tender, no rebound/guarding/rigidity, normoactive bowel sounds, no hepatosplenomegaly or masses, no costovertebral angle tenderness Musculoskeletal: general: grossly intact; gait: stable Integumental: normal appearance and texture of exposed skin Psychiatric orientation: AA&O to PPS affect: calm mood: cooperative eye contact: fair content: reliable responses: timely insight: fair Testing: Lab Results 12/10/17 12/10/17 12/10/17 Range/Units 11:58 11:58 12:45 WBC 6.3 (3.5-10.8) 10^3/ul RBC 4.35 (4.0-5.4) 10^6/ul Hgb 12.9 (12.0-16.0) g/dl Hct 38 (35-47) % MCV 86 (80-97) fL MCH 30 (27-31) pg MCHC 34 (31-36) g/dl RDW 15 (10.5-15) % Plt Count 236 (150-450) 10^3/ul MPV 7.3 L (7.4-10.4) um3 Neut % (Auto) 71.4 (38-83) % Lymph % (Auto) 13.3 L (25-47) % Traverse % (Auto) 12.5 H (0-7) % Eos % (Auto) 2.2 (0-6) % Baso % (Auto) 0.6 (0-2) % Absolute Neuts (auto) 4.5 (1.5-7.7) 10^3/ul Absolute Lymphs (auto) 0.8 L (1.0-4.8) 10^3/ul Absolute Monos (auto) 0.8 (0-0.8) 10^3/ul Absolute Eos (auto) 0.1 (0-0.6) 10^3/ul Absolute Basos (auto) 0 (0-0.2) 10^3/ul Absolute Nucleated RBC 0 10^3/ul Nucleated RBC % 0.1 Sodium 138 (133-145) mmol/L Potassium 3.6 (3.5-5.0) mmol/L Chloride 105 (101-111) mmol/L Carbon Dioxide 28 (22-32) mmol/L Anion Gap 5 (2-11) mmol/L BUN 12 (6-24) mg/dL Creatinine 0.79 (0.51-0.95) mg/dL Est GFR ( Amer) 90.5 (>60) Est GFR (Non-Af Amer) 70.4 (>60) BUN/Creatinine Ratio 15.2 (8-20) Glucose 110 H (70-100) mg/dL Calcium 9.5 (8.6-10.3) mg/dL Total Bilirubin 0.60 (0.2-1.0) mg/dL AST 12 L (13-39) U/L ALT 8 (7-52) U/L Alkaline Phosphatase 74 (34-104) U/L Troponin I 0.00 (<0.04) ng/mL Total Protein 6.5 (6.4-8.9) g/dL Albumin 3.9 (3.2-5.2) g/dL Globulin 2.6 (2-4) g/dL Albumin/Globulin Ratio 1.5 (1-3) TSH 1.25 (0.34-5.60) mcIU/mL Urine Color Colorless Urine Appearance Clear Urine pH 7.0 (5-9) Ur Specific Hudson 1.002 L (1.010-1.030) Urine Protein Negative (Negative) Urine Ketones Negative (Negative) Urine Blood Negative (Negative) Urine Nitrate Negative (Negative) Urine Bilirubin Negative (Negative) Urine Urobilinogen Negative (Negative) Ur Leukocyte Esterase 1+ A (Negative) Urine WBC (Auto) Absent (Absent) Urine RBC (Auto) Absent (Absent) Urine Bacteria Absent (Absent) Urine Glucose Negative (Negative) Salicylates < 2.50 (<30) mg/dL Acetaminophen < 15 mcg/mL Serum Alcohol < 10 (<10) mg/dL ECG, personally reviewed: NSR rate 68, no ischemia, occasional PAC Impression: 77F with suicidal depression for observation and social security benefits interviewer in the AM DIAGNOSIS & PLAN Primary suicidal depression : social security benefits interviewer consult to arrange discharge back to [facility] Secondary DM2 : continue metformin & glipizide : correctional insulin : consistent carb diet : ACHS glucometry HTN : continue lisinopril & atenolol depression w/ suicidality : lacks medical decision capacity : continue quetiapine & fluoxetine Admission Rational: observation for discharge planning DVTp: heparin SQ Code Status: DNR HCP: children
[2017-12-10] MEDS: Acetaminophen TAB* 325 MG PO PRN (23:55)
[2017-12-10] MEDS: QUEtiapine TAB* 25 MG PO SCH (23:56)
[2017-12-11] MEDS ORDERED: Benzonatate CAP* 100 MG PO PRN (06:43)
[2017-12-11] MEDS: Insulin LISPRO* 1 UNITS UNIT SUBCUT SCH ×4 (08:19→22:59)
[2017-12-11] MEDS: glipiZIDE TAB.XL* 5 MG PO SCH (08:22)
[2017-12-11] MEDS: Atenolol TAB* 50 MG PO SCH ×2 (08:22→22:46)
[2017-12-11] MEDS: FLUoxetine CAP* 20 MG PO SCH (08:22)
[2017-12-11] MEDS: Acetaminophen TAB* 325 MG PO PRN (08:23)
[2017-12-11] MEDS: Lisinopril TAB* 5 MG PO SCH (08:23)
[2017-12-11] MEDS: metFORMIN* 500 MG TAB PO SCH (08:23)
--- NOTE | 2017-12-11 17:43 | PN ---
Subjective Date of Service: 12/11/17 Interval History: Patient seen and examined. Confused at baseline, no distress. No complaints. Objective Active Medications: Acetaminophen (Tylenol Tab*) 650 mg PO Q6H PRN PRN Reason: FEVER/PAIN Last Admin: 12/11/17 08:23 Dose: 650 mg Atenolol (Tenormin Tab*) 50 mg PO 0900,2100 [facility] Last Admin: 12/11/17 08:22 Dose: 50 mg Benzonatate (Tessalon Cap*) 100 mg PO BID PRN PRN Reason: COUGH Fluoxetine HCl (Prozac Cap*) 20 mg PO QAM [facility] Last Admin: 12/11/17 08:22 Dose: 20 mg Glipizide (Glucotrol Xl*) 5 mg PO QAM [facility] Last Admin: 12/11/17 08:22 Dose: 5 mg Insulin Human Lispro (Humalog*) 0 units SUBCUT ACHS [facility] PRN Reason: Protocol Last Admin: 12/11/17 17:30 Dose: 2 units Lisinopril ([facility]inivil [facility]*) [facility] Last Admin: 12/11/17 08:23 Dose: 2.5 mg Melatonin (Melatonin (Nf)) 3 mg PO BEDTIME PRN; Protocol PRN Reason: Sleep Metformin HCl (Glucophage*) 500 mg PO DAILY [facility] Last Admin: 12/11/17 08:23 Dose: 500 mg Quetiapine Fumarate (Seroquel Tab*) 25 mg PO BEDTIME [facility] Last Admin: 12/10/17 23:56 Dose: 25 mg Tramadol HCl (Ultram*) 50 mg PO Q6H PRN PRN Reason: PAIN Vital Signs - 8 hr 12/11/17 12/11/17 11:38 15:37 Temperature 99.1 F 98.4 F Pulse Rate 66 82 Respiratory 16 17 Rate Blood Pressure 143/61 151/68 (mmHg) O2 Sat by Pulse 96 97 Oximetry Oxygen Devices in Use Now: None Appearance: Alert, NAD Ears/Nose/Mouth/Throat: Mucous Membranes Moist Neck: NL Appearance and Movements; NL JVP, Trachea Midline Respiratory: Symmetrical Chest Expansion and Respiratory Effort, Clear to Auscultation Cardiovascular: NL Sounds; No Murmurs; No JVD, RRR, No Edema Neurological: NL Gait - alert to person and place Nutrition: Taking PO's Result Diagrams: 12/10/17 11:58 12/10/17 11:58 Microbiology and Other Data: Microbiology 12/10/17 23:40 Nasal Screen MRSA (PCR)([facility]) - Final Nasal Mrsa Not Detected Assess/Plan/Problems-Billing Assessment: This is a 77 year old female patient with hx of dementia and SI, sent from [facility] for eval for SI. - Patient Problems (1) Dementia with behavioral disturbance Code(s): F03.91 - UNSPECIFIED DEMENTIA WITH BEHAVIORAL DISTURBANCE SNOMED Code (s): 2963061881532 Comment: - Appears to be exacerbated by 's recent , making suicidal statements while at [facility] - Evaluated by psychiatry who will not accept for voluntary, stating that the issue is dementia and needs memory care, not acute psychiatric care - Continue seroquel and SSRI (2) HTN (hypertension) Current Visit: No Status: Chronic Code(s): I10 - ESSENTIAL (PRIMARY) HYPERTENSION SNOMED Code(s): 45085176 Comment: - Normotensive - Continue home lisinopril and atenolol (3) Type 2 diabetes mellitus Comment: - Continue home metformin and glipizide Status and Disposition: [facility] refused to accept after initially accepting patient. Will discuss with case management for patient to go back to [facility] tomorrow.
--- NOTE | 2017-12-11 21:39 | CONS ---
CC: [facility]; Zabrina Wild NP * CONSULTATION REPORT: DATE OF CONSULT: SUPERVISING PSYCHIATRIST: Nikos Whelan MD ATTENDING PHYSICIAN: Edmond Armenta MD CONSULTING PROVIDER: Zabrina Wild NP REASON FOR CONSULT: Suicidal ideation, psychiatric history. Ms. Gong provided her own history and is a poor historian. Her MMSE score was 19/30. HISTORY OF PRESENT ILLNESS: Renea is a 77-year-old white female with a history of depressed mood since her early 20s. She presented to the emergency department on 12/10/17 after telling her mental health social worker at [facility] that she had suicidal thoughts. Today, she reports sleeping well in the emergency department. The patient was known to have a diagnosis of dementia and was admitted for medical observation. Today, she reports that her approximately 1 month ago, and since his passing, she has had suicidal thoughts. She does not have a concrete plan. She states she has thought about jumping into a gorge. She has been residing at [facility] for quite some time. She states she is not happy there. She states that she is unable to do things that she enjoys such as gardening, sewing and knitting. 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 She states that she has much financial needs. She states that she went to [facility] because of her depression and her did not think that she was safe to be alone. The patient denies self-harm or suicidal attempt. She denies hopelessness, helplessness, or guilt. She denies change in energy level or sleep. She states that she has never had formal psychiatric treatment and her current medications were started when she started residing at [facility]. MENTAL STATUS EXAM: The patient is an elderly white female. She is wearing a hospital gown, sitting on a chair and reading book. She is fairly well kempt. She does have long reddish hair and facial hair. She is slightly overweight. As stated above, the patient scored poorly on the mini mental status exam. Her eye contact is good. Her speech is soft and articulate. Her memory is poor. Her mood is euthymic with bright affect. Thought content is positive for chronic suicidal ideation. She denies AV hallucinations. Her insight and judgment are poor. Her fund of knowledge is adequate. DIAGNOSES: Bereavement and dementia. ASSESSMENT: Renea is a 77-year-old female with a history of dementia and suicidal ideation. She does not have capacity to make her own decisions. She is a resident of [facility] and would likely meet criteria for a memory care unit. According to behavioral services community arts officer, the patient is not appropriate for admission to the [facility] due to the nature of dementia. She would benefit from outpatient psychiatric services if [facility] is able to accommodate transportation. I have notified her provider, Zabrina, of the above decision. JOB BENÍTEZ, DOLLYMAN [id number]/[facility] #: [id number] BRYANT
[2017-12-11] MEDS: QUEtiapine TAB* 25 MG PO SCH (22:46)
[2017-12-12] MEDS: Acetaminophen TAB* 325 MG PO PRN (07:54)
[2017-12-12] MEDS: Insulin LISPRO* 1 UNITS UNIT SUBCUT SCH ×4 (08:04→20:24)
[2017-12-12] MEDS ORDERED: Nitrofurantoin Macrocrystals* 50 MG CAP PO SCH (09:00)
[2017-12-12] MEDS: Levofloxacin TAB* 500 MG PO SCH (09:30)
[2017-12-12] MEDS: FLUoxetine CAP* 20 MG PO SCH (09:30)
[2017-12-12] MEDS: glipiZIDE TAB.XL* 5 MG PO SCH (09:30)
[2017-12-12] MEDS: metFORMIN* 500 MG TAB PO SCH (09:30)
[2017-12-12] MEDS: Atenolol TAB* 50 MG PO SCH ×2 (09:30→20:23)
[2017-12-12] MEDS: Lisinopril TAB* 5 MG PO SCH (09:30)
--- NOTE | 2017-12-12 14:54 | PN ---
Hospitalist Progress Note Date of Service: 12/12/17
--- NOTE | 2017-12-12 14:57 | PN ---
Hospitalist Progress Note Date of Service: 12/12/17 Reconfirmed with case management regarding POC. Ofelia spoke with patient's son who is the patient's proxy, he understands the the patient cannot go to [facility] and that she will be DC'd back to [facility] if they will accept her back. Apparently , [facility] has not been able to get her outpatient psychiatric care. Son states there is a possibility that patient may be able to go to another facility eventually and he is waiting on admission acceptance. This does not, however, preclude the patient from returning to her current facility in anticipation of transition. Patient making statements that she wants to fly to [place] and be with her again. She is difficult to communicate with and told me to leave the room. 1:[address] until discharge. Update from CM, that a referral is out to a geriatric psychiatric facility in [place], [place] and awaiting disposition. Patient remains clear for Discharge when appropriate facility is located and confirmed. Please see dictated DC summary.
[2017-12-12] MEDS: QUEtiapine TAB* 25 MG PO SCH (20:23)
[2017-12-13] MEDS: Acetaminophen TAB* 325 MG PO PRN ×2 (03:39→08:36)
[2017-12-13] MEDS: glipiZIDE TAB.XL* 5 MG PO SCH (08:36)
[2017-12-13] MEDS: Atenolol TAB* 50 MG PO SCH (08:36)
[2017-12-13] MEDS: FLUoxetine CAP* 20 MG PO SCH (08:37)
[2017-12-13] MEDS: Lisinopril TAB* 5 MG PO SCH (08:37)
[2017-12-13] MEDS: metFORMIN* 500 MG TAB PO SCH (08:37)
[2017-12-13] MEDS: Insulin LISPRO* 1 UNITS UNIT SUBCUT SCH ×2 (08:37→13:02)
[2017-12-13] MEDS: Levofloxacin TAB* 500 MG PO SCH (08:37)
--- NOTE | 2017-12-13 09:44 | PN ---
Subjective Date of Service: 12/13/17 Interval History: Patient seen and examined. Much more calm this morning. Appears appropriate, only complaint is headache for which she took tylenol. No fevers, no chest pain , no SOB. States she feels left leg is swollen. States she normally has edema bilaterally of the LE but the left is much worse today. Objective Active Medications: Acetaminophen (Tylenol Tab*) 650 mg PO Q6H PRN PRN Reason: FEVER/PAIN Last Admin: 12/13/17 08:36 Dose: 650 mg Atenolol (Tenormin Tab*) 50 mg PO 0900,2100 [facility] Last Admin: 12/13/17 08:36 Dose: 50 mg Benzonatate (Tessalon Cap*) 100 mg PO BID PRN PRN Reason: COUGH Fluoxetine HCl (Prozac Cap*) 20 mg PO QAM [facility] Last Admin: 12/13/17 08:37 Dose: Not Given Glipizide (Glucotrol Xl*) 5 mg PO QAM [facility] Last Admin: 12/13/17 08:36 Dose: 5 mg Insulin Human Lispro (Humalog*) 0 units SUBCUT ACHS [facility] PRN Reason: Protocol Last Admin: 12/13/17 08:37 Dose: Not Given Levofloxacin (Levaquin Tab*) 500 mg PO Q24H [facility] Last Admin: 12/13/17 08:37 Dose: 500 mg Lisinopril (Prinivil Tab*) 2.5 mg PO QAM [facility] Last Admin: 12/13/17 08:37 Dose: 2.5 mg Melatonin (Melatonin (Nf)) 3 mg PO BEDTIME PRN; Protocol PRN Reason: Sleep Metformin HCl (Glucophage*) 500 mg PO DAILY [facility] Last Admin: 12/13/17 08:37 Dose: 500 mg Quetiapine Fumarate (Seroquel Tab*) 25 mg PO BEDTIME [facility] Last Admin: 12/12/17 20:23 Dose: 25 mg Tramadol HCl (Ultram*) 50 mg PO Q6H PRN PRN Reason: PAIN Vital Signs - 8 hr 12/13/17 12/13/17 02:58 08:10 Temperature 98.2 F 98.5 F Pulse Rate 64 70 Respiratory 16 14 Rate Blood Pressure 130/60 143/58 (mmHg) O2 Sat by Pulse 98 99 Oximetry Oxygen Devices in Use Now: None Appearance: disheveled, NAD Ears/Nose/Mouth/Throat: Mucous Membranes Moist Neck: NL Appearance and Movements; NL JVP, Trachea Midline Respiratory: Symmetrical Chest Expansion and Respiratory Effort, Clear to Auscultation Cardiovascular: NL Sounds; No Murmurs; No JVD, RRR Abdominal: NL Sounds; No Tenderness; No Distention Extremities: - - left calf diameter greater than right, non tender Neurological: - - Alert, orient to person and place, baseline dementia, no suicidal statements today Nutrition: Taking PO's Result Diagrams: 12/10/17 11:58 12/10/17 11:58 Microbiology and Other Data: Microbiology 12/10/17 23:40 Nasal Screen MRSA (PCR)([facility]) - Final Nasal Mrsa Not Detected Assess/Plan/Problems-Billing Assessment: This is a 77 year old female patient with hx of dementia and SI, sent from [facility] for eval for SI. - Patient Problems (1) Dementia with behavioral disturbance Code(s): F03.91 - UNSPECIFIED DEMENTIA WITH BEHAVIORAL DISTURBANCE SNOMED Code (s): 6794238684968 Comment: - Appears to be exacerbated by 's recent , making suicidal statements while at [facility] - Evaluated by psychiatry who will not accept for voluntary, stating that the issue is dementia and needs memory care, not acute psychiatric care - Continue seroquel and SSRI for now, continue 1:1 watch for safety (2) HTN (hypertension) Current Visit: No Status: Chronic Code(s): I10 - ESSENTIAL (PRIMARY) HYPERTENSION SNOMED Code(s): 86259003 Comment: - Normotensive - Continue home lisinopril and atenolol (3) Type 2 diabetes mellitus Comment: - Continue home metformin and glipizide, BG stable (4) Leg edema, left Code(s): R60.0 - LOCALIZED EDEMA SNOMED Code(s): 422611845 Comment: - Venous doppler to r/o DVT, if negative, will place TEDs and recommend elevation Status and Disposition: Per CM, waiting on facility in [place] (arturo/psych) for potential acceptance. Counseling and/or Coordination of Care Minutes: coordinated with CM and SW
--- NOTE | 2017-12-13 10:34 | RAD ---
HISTORY: calf edema COMPARISONS: None relevant TECHNIQUE: Multiple transverse and longitudinal ultrasound images were obtained of the left lower extremity from the level of the common femoral vein inferiorly through to the infrapopliteal veins using grayscale, color Doppler, and spectral Doppler imaging with and without compression and with augmentation. Comparison images were obtained of the contralateral common femoral vein. FINDINGS: VEINS: The venous system of the left lower extremity is compressible throughout its course, with normal flow on color Doppler imaging and normal response to augmentation on spectral Doppler imaging. SOFT TISSUES: Unremarkable. OTHER FINDINGS: None. IMPRESSION: NO LEFT LOWER EXTREMITY DEEP VEIN THROMBOSIS
--- NOTE | 2017-12-13 13:33 | RAD ---
HISTORY: Suicidality, rule out TB COMPARISONS: None VIEWS: 1: frontal portable view of the chest at 12:30 PM FINDINGS: LINES AND TUBES: None. CARDIOMEDIASTINAL SILHOUETTE: The cardiomediastinal silhouette is normal for portable technique. PLEURA: There is elevation of the right hemidiaphragm. LUNG PARENCHYMA: The lungs are clear. ABDOMEN: The upper abdomen is clear. There is no subphrenic gas. BONES AND SOFT TISSUES: No bone or soft tissue abnormalities are noted. IMPRESSION: ELEVATION OF THE RIGHT HEMIDIAPHRAGM. NO RADIOGRAPHIC EVIDENCE OF PULMONARY PARENCHYMAL TUBERCULOSIS.
--- NOTE | 2017-12-13 14:41 | TRS ---
CC: Katy Ross DO * TRANSFER SUMMARY: DATE OF ADMISSION: 12/10/17 DATE OF TRANSFER: 12/13/17 ATTENDING FOR THIS ADMISSION: Deep Ortiz MD. MY ATTENDING FOR TODAY: DO Kirsten Davidson (DICTATED BY RICHI ODOM NP) HOSPITAL COURSE: This is a 77-year-old female patient who was in her usual state of health at [facility]. The patient has had a longstanding history of dementia commingled with depression. She sustained a loss at the end of the year; her and seems to have exacerbated both her dementia and her mood. The patient has had essentially behavioral disorder for some time now and was having difficulty at her current facility finding the correct outpatient psychiatric treatment that she needed, essentially because the patient has an underlying dementia, it was difficult to find an outpatient provider that was a orthodontic laboratory technician that could also deal with her psychiatric history along with her underlying dementia. The patient was apparently making some suicidal statements while she was at [facility]. She was emergently transferred to the ED at our hospital where she was evaluated by the emergency physician. She was admitted to observation, pending an evaluation by our psychiatric team. She was seen by Dr. Whelan's group who is our supervising psychiatrist for [facility] that day. She continued to make suicidal statements; however, the [facility] unit and our hospital felt that she would be inappropriate for inpatient care based on her advanced dementia. At that point, we decided to try and find alternate services or facilities as the patient consistently has been in a depressed mood and certainly making statements about wanting to or wanting to kill herself during the course of the hospitalization. The recommendations from [facility] stated that she would benefit from outpatient psychiatric services if [facility] was able to accommodate transportation. However, [facility] does not have those services available and as such, we do not have those services available here and we feel it would be in the patient's best interest and safety to be discharged to the facility in [place], [place], that can care for her needs more effectively. Of significant note, the patient did not have any medical issues at admission. She did have some swelling of the left lower extremity, a venous Doppler study was done to rule out DVT. The venous Doppler is negative. LABORATORY DATA: At admission, WBC 6.3; RBC 4.35; hemoglobin 12.9; hematocrit 38; and platelets are 236,000. Sodium 138, potassium 3.6, chloride 105, CO2 of 25, anion gap 5; BUN 12, creatinine 0.79. GFR 70.4. Glucose 110, calcium 9.5, bilirubin 0.60, AST 12, ALT 8, alk phos 74. Troponin negative at 0.00. Total protein 6.5, albumin 3.5, globulin 2.6. TSH 1.25. Urinalysis showed negative for nitrites, no proteins, no ketones, no blood, 1+ leukocyte esterase only. Toxicology screen; she was negative for salicylates, acetaminophen, or alcohol. The patient did have a chest x-ray on 12/13/17, which showed no acute cardiopulmonary process. DISCHARGE DIAGNOSES: 1. Major depressive disorder with suicidal ideation. 2. History of dementia. 3. History of type 2 diabetes mellitus, controlled. 4. Hypertension. 5. Bilateral leg edema. Although her urinalysis did not appear to be infected, she did have a positive urine culture on 12/10/17 showing E. coli in the urine. As such, the patient was placed on Levaquin empirically for 7 days of treatment. MEDICATIONS AT THE TIME OF DISCHARGE: Include; 1. Tylenol 650 mg q.6 hours as needed. 2. Atenolol 50 mg 2 times a day. 3. Tessalon caps 100 mg 2 times a day. 4. Prozac 20 mg daily. 5. Glipizide 5 mg in the morning. 6. Levaquin 500 mg q.24 hours. 7. Lisinopril 2.5 mg in the morning. 8. Melatonin 3 mg at bedtime. 9. Metformin 500 mg daily. 10. Seroquel 50 mg in the evening. 11. Tramadol 50 mg q.6 hours as needed. DISCHARGE PLANNING: The patient will be transferred to the facility in [place], [place], today. She has an accepting bed. It is of significant note that the patient was deemed to not have capacity in 2017. Her son who is her medical healthcare proxy is aware of her transfer and is in agreement with the plan. End product of this plan will be hopefully that the patient will get the treatment she needs at [place] and return to [facility] as a regular resident. The patient was transferred in stable condition. Case management coordinated communication with the patient's son. RICHI ODOM, SPIN INSTRUCTOR [id number]/[facility] #: [id number] [facility]
[2017-12-13 15:54] VITALS: BP 175/69
[2017-12-13] MEDS ORDERED: QUEtiapine TAB* 25 MG PO SCH (21:00)
== END 2017-12-13 16:30 | disposition short-term general hospital (02) | DRG 881 ==
LOC: ED 11:12 → MED 21:09 → INTOOBSV 21:09 → OBSVTOIN 12-12 16:00
PROVIDERS: ADMIT Hospitalist; ATTEND Hospitalist
DX: F32.9 Major depressive disorder, single episode, unspecified (principal); R45.851 Suicidal ideations; F03.91 Unspecified dementia, unspecified severity, with behavioral disturbance; E11.9 Type 2 diabetes mellitus without complications; I10 Essential (primary) hypertension; R82.79 Other abnormal findings on microbiological examination of urine; E66.3 Overweight; Z66 Do not resuscitate; R60.0 Localized edema; Z63.4 Disappearance and death of family member; Z79.84 Long term (current) use of oral hypoglycemic drugs; Z88.2 Allergy status to sulfonamides; Z83.3 Family history of diabetes mellitus; Z68.37 Body mass index [BMI] 37.0-37.9, adult; Z90.49 Acquired absence of other specified parts of digestive tract
CPT/HCPCS: 36415; 71045; 80053; 80320; 80329; 81003; 81015; 84443; 84484; 85025; 87077; 87086; 87186; 87641; 93005; 99285; A9270-GY; G0480

== ENCOUNTER 2018-08-17 22:06 | Inpatient (IN) | payer BC, MEDICARE ==
[2018-08-17 23:37] LABS: ABS Basophils 0 10^3/ul (0-0.2); ABS Eosinophils 0.2 10^3/ul (0-0.6); ABS Lymphocytes 2.2 10^3/ul (1.0-4.8); ABS Monocytes 0.8 10^3/ul (0-0.8); ABS Neutrophils 5.3 10^3/ul (1.5-7.7); ABS Nucleated RBC 0 10^3/ul; Eosinophil % 2.5 %; Hematocrit 39 % (35-47); Hemoglobin 13.9 g/dl (12.0-16.0); Lymphocyte % 25.8 %; Mean Corpuscular HGB Conc 36 g/dl (31-36); Mean Corpuscular Hemoglobin 31 pg (27-31); Mean Corpuscular Volume 88 fL (80-97); Nucleated Red Blood Cells % 0; Platelet Count 265 10^3/ul (150-450); Red Blood Count 4.46 10^6/ul (4.00-5.40); Red Cell Distribution Width 14 % (10.5-15); White Blood Count 8.5 10^3/ul (3.5-10.8)
[2018-08-17 23:47] LABS: Activated Partial Thrombo Time 31.3 seconds (26.0-36.3); INR 0.9 (0.77-1.02)
[2018-08-17 23:56] LABS: Albumin/Globulin Ratio 1.7 (1-3); BUN/Creatinine Ratio 26.2 (8-20); CRP High Sensitivity 3.03 mg/L (<2.00); Calcium 9.5 mg/dL (8.6-10.3); EGFR Non-African American 65.6 (>60); Globulin 2.4 g/dL (2-4); Magnesium 1.9 mg/dL (1.9-2.7); Potassium 4.1 mmol/L (3.5-5.0); Total Bilirubin 0.4 mg/dL (0.2-1.0); Total Protein 6.4 g/dL (6.4-8.9)
--- NOTE | 2018-08-18 01:22 | ED ---
Lower Extremity - HPI Summary HPI Summary: The pt is a 77 y.o female presenting to the [facility] with a chief complaint of lower extremity edema bilaterally. Pt is accompanied by bookkeeping service sales agent. The pt states that she is currently unable to walk without assistance and that she has not fallen since onset of symptoms. She denies SOB. She also denies PMHx of blood clots. She reports of chest tightness. She also reports of PMHx of DM. Pt states that she does not smoke or use recreational drugs. She currently lives alone. Risk Management Internship later states that the pt has worsening dementia and that she has been having nurses visit her at home. She was discharged from [facility] previously. Symptoms aggravated by nothing and symptoms alleviated by nothing. - History of Current Complaint Chief Complaint: EDExtremityLower Stated Complaint: GENERAL Time Seen by Provider: 08/17/18 22:55 Hx Obtained From: Patient, Family/[facility] Management [facility] Pain Intensity: 0 Pain Scale Used: 0-10 Numeric Timing: Constant Associated Signs And Symptoms: Positive: Swelling, Redness Aggravating Factor(s): Nothing Alleviating Factor(s): Nothing - Allergies/Home Medications Allergies/Adverse Reactions: Allergies Allergy/AdvReac Type Severity Reaction Status Date / Time Sulfa (Sulfonamide Allergy Unknown Verified 08/17/18 22:25 Antibiotics) Reaction Details Home Medications: Home Medications QUEtiapine TAB* [Seroquel 25 MG TAB*] 25 mg PO BEDTIME 08/18/18 [History Confirmed 08/18/18] PMH/Surg Hx/FS Hx/Imm Hx Endocrine/Hematology History: Reports: Hx Diabetes Cardiovascular History: Reports: Hx Hypertension Denies: Hx Myocardial Infarction Respiratory History: Denies: Hx Asthma, Hx Bronchopulmonary Dysplasia, Hx Chronic Bronchitis, Hx Chronic Obstructive Pulmonary Disease (COPD), Hx Cystic Fibrosis, Hx Lung Cancer , Hx Pleural Effusion, Hx Pneumonia, Hx Pulmonary Edema, Hx Pulmonary Embolism, Hx Seasonal Allergies, Hx Sleep Apnea, Other Respiratory Problems/Disorders Sensory History: Reports: Hx Contacts or Glasses Denies: Hx Hearing Aid Opthamlomology History: Reports: Hx Contacts or Glasses Neurological History: Reports: Hx Dementia - paranoid Psychiatric History: Denies: Hx Eating Disorder - Cancer History Hx Chemotherapy: No Hx Radiation Therapy: No Infectious Disease History: No Infectious Disease History: Denies: Traveled Outside the [place] in Last 30 Days - Family History Known Family History: Positive: Diabetes - brother Negative: Cardiac Disease - Social History Alcohol Use: Rare Alcohol Amount: denies Hx Substance Use: No Substance Use Type: Reports: None Substance Use Comment - Amount & Last Used: denies Hx Tobacco Use: No Smoking Status (MU): Never Smoked Tobacco Review of Systems Constitutional: Negative Eyes: Negative ENT: Negative Cardiovascular: Other - Chest tightness Negative: Shortness Of Breath Gastrointestinal: Negative Genitourinary: Negative Positive: Edema - Lower Extermity Edema (bilaterally) Skin: Other - Redness at the lower extremities Neurological: Negative Psychological: Normal All Other Systems Reviewed And Are Negative: Yes Physical Exam - Summary Physical Exam Summary: GENERAL: Patient is a well-developed and nourished Female who is lying comfortable in the stretcher. Patient is not in any acute respiratory distress. HEAD AND FACE: Normocephalic EYES: PERRLA, EOMI x 2. EARS: Hearing grossly intact. MOUTH: Oropharynx within normal limits. NECK: Supple, trachea is midline, no adenopathy, no JVD, no carotid bruit. CHEST: Symmetric, no tenderness at palpation LUNGS: Clear to auscultation bilaterally. No wheezing or crackles. CVS: Regular rate and rhythm, S1 and S2 present, no murmurs or gallops appreciated. ABDOMEN: Soft, non-tender. Bowel sounds are normal. No abdominal abnormal pulsations. EXTREMITIES: Two plus pitting edema area of erythema 3 plus pitting edema, left lower area of erythema NEURO: Alert and oriented x 3. No acute neurological deficits. Speech is normal and follows commands. SKIN: Discrimination of the skin at [facility] Triage Information Reviewed: Yes Vital Signs On Initial Exam: Initial Vitals Pulse BP Pulse Ox 69 158/86 97 08/17/18 22:10 08/17/18 22:10 08/17/18 22:10 Vital Signs Reviewed: Yes Diagnostics - Vital Signs Vital Signs Temp Pulse Resp BP Pulse Ox 08/17/18 22:40 68 21 162/89 97 08/17/18 22:16 97.9 F 70 18 158/86 98 08/17/18 22:12 70 100 08/17/18 22:10 69 158/86 97 - Laboratory Lab Results: Lab Results 08/17/18 08/17/18 08/17/18 Range/Units 23:24 23:24 23:24 WBC 8.5 (3.5-10.8) 10^3/ul RBC 4.46 (4.00-5.40) 10^6/ul Hgb 13.9 (12.0-16.0) g/dl Hct 39 (35-47) % MCV 88 (80-97) fL MCH 31 (27-31) pg MCHC 36 (31-36) g/dl RDW 14 (10.5-15) % Plt Count 265 (150-450) 10^3/ul MPV 7.0 L (7.4-10.4) fL Neut % (Auto) 62.0 % Lymph % (Auto) 25.8 % Chilton % (Auto) 9.2 % Eos % (Auto) 2.5 % Baso % (Auto) 0.5 % Absolute Neuts (auto) 5.3 (1.5-7.7) 10^3/ul Absolute Lymphs (auto) 2.2 (1.0-4.8) 10^3/ul Absolute Monos (auto) 0.8 (0-0.8) 10^3/ul Absolute Eos (auto) 0.2 (0-0.6) 10^3/ul Absolute Basos (auto) 0 (0-0.2) 10^3/ul Absolute Nucleated RBC 0 10^3/ul Nucleated RBC % 0 INR (Anticoag Therapy) (0.77-1.02) APTT (26.0-36.3) seconds Sodium 135 (135-145) mmol/L Potassium 4.1 (3.5-5.0) mmol/L Chloride 98 L (101-111) mmol/L Carbon Dioxide 30 (22-32) mmol/L Anion Gap 7 (2-11) mmol/L BUN 22 (6-24) mg/dL Creatinine 0.84 (0.51-0.95) mg/dL Est GFR ( Amer) 79.3 (>60) Est GFR (Non-Af Amer) 65.6 (>60) BUN/Creatinine Ratio 26.2 H (8-20) Glucose 203 H (70-100) mg/dL Lactic Acid 1.3 (0.5-2.0) mmol/L Calcium 9.5 (8.6-10.3) mg/dL Magnesium 1.9 (1.9-2.7) mg/dL Total Bilirubin 0.40 (0.2-1.0) mg/dL AST 11 L (13-39) U/L ALT 12 (7-52) U/L Alkaline Phosphatase 72 (34-104) U/L Troponin I 0.00 (<0.04) ng/mL C-React Prot High Sens 3.03 H (<2.00) mg/L B-Natriuretic Peptide (<=100) pg/mL Total Protein 6.4 (6.4-8.9) g/dL Albumin 4.0 (3.2-5.2) g/dL Globulin 2.4 (2-4) g/dL Albumin/Globulin Ratio 1.7 (1-3) 08/17/18 08/17/18 Range/Units 23:24 23:24 WBC (3.5-10.8) 10^3/ul RBC (4.00-5.40) 10^6/ul Hgb (12.0-16.0) g/dl Hct (35-47) % MCV (80-97) fL MCH (27-31) pg MCHC (31-36) g/dl RDW (10.5-15) % Plt Count (150-450) 10^3/ul MPV (7.4-10.4) fL Neut % (Auto) % Lymph % (Auto) % Chilton % (Auto) % Eos % (Auto) % Baso % (Auto) % Absolute Neuts (auto) (1.5-7.7) 10^3/ul Absolute Lymphs (auto) (1.0-4.8) 10^3/ul Absolute Monos (auto) (0-0.8) 10^3/ul Absolute Eos (auto) (0-0.6) 10^3/ul Absolute Basos (auto) (0-0.2) 10^3/ul Absolute Nucleated RBC 10^3/ul Nucleated RBC % INR (Anticoag Therapy) 0.90 (0.77-1.02) APTT 31.3 (26.0-36.3) seconds Sodium (135-145) mmol/L Potassium (3.5-5.0) mmol/L Chloride (101-111) mmol/L Carbon Dioxide (22-32) mmol/L Anion Gap (2-11) mmol/L BUN (6-24) mg/dL Creatinine (0.51-0.95) mg/dL Est GFR ( Amer) (>60) Est GFR (Non-Af Amer) (>60) BUN/Creatinine Ratio (8-20) Glucose (70-100) mg/dL Lactic Acid (0.5-2.0) mmol/L Calcium (8.6-10.3) mg/dL Magnesium (1.9-2.7) mg/dL Total Bilirubin (0.2-1.0) mg/dL AST (13-39) U/L ALT (7-52) U/L Alkaline Phosphatase (34-104) U/L Troponin I (<0.04) ng/mL C-React Prot High Sens (<2.00) mg/L B-Natriuretic Peptide 70 (<=100) pg/mL Total Protein (6.4-8.9) g/dL Albumin (3.2-5.2) g/dL Globulin (2-4) g/dL Albumin/Globulin Ratio (1-3) Result Diagrams: 08/17/18 23:24 08/17/18 23:24 Lab Statement: Any lab studies that have been ordered have been reviewed, and results considered in the medical decision making process. - Radiology Chest X-ray Radiology Interpretation Completed By: ED Physician Summary of Radiographic Findings: The Chest X-ray reveals no acute processes as per ED Physician. - Ultrasound No standard instances Ultrasound Interpretation Completed By: Radiologist Summary of Ultrasound Findings: The US reveals no acute processes as per radiologist findings. No evidence of deep vein thrombrosis as per radiologist. The ED Physician has reviewed this radiology report. - EKG 0014 Summary of EKG Findings: EKG at 0014 reveals normal sinus rhythm at 63 bpm and LVH Lower Extremity Course/Dx - Course Course Of Treatment: The pt is a 77 y.o female presenting to the [facility] with a chief complaint of bilateral lower extremity edema. The patient received an EKG , chest x-ray and US in the [facility]. We discussed patient care with Dr. Ross at 0103 and she accepts patient care. The patient will be admitted to the [facility] after discussion of the plan. She agrees with the plan. The dx will be difficulty ambulating and leg swelling. - Diagnoses Provider Diagnoses: Difficulty walking, Leg swelling Discharge - Sign-Out/Discharge Documenting (check all that apply): Patient Departure - Admission to the [facility] - Discharge Plan Condition: Stable Disposition: ADMITTED TO [facility] - Billing Disposition and Condition Condition: STABLE Disposition: Admitted to [facility] - Attestation Statements Document Initiated by Bushra: Yes Documenting Scribe: Jesse Jiang Provider For Whom Bushra is Documenting (Include Credential): Dr. Ranulfo Patel Scribe Attestation: Jesse Jensen, scribed for Dr. Ranulfo Patel on 08/18/18 at 0557. Scribe Documentation Reviewed: Yes Provider Attestation: The documentation as recorded by the Jesse kimbrough accurately reflects the service I personally performed and the decisions made by Dr. Ranulfo boothe Status of Scribe Document: Viewed
[2018-08-18] MEDS ORDERED: Dextrose 50% Syringe 50 ML* 25 GM/50 ML SYRINGE IV PUSH PRN (04:17)
[2018-08-18 06:14] LABS: Urine Appearance Clear; Urine Bilirubin Negative (Negative); Urine Blood Negative (Negative); Urine Color Yellow; Urine Glucose Negative (Negative); Urine Ketones Negative (Negative); Urine Nitrite Negative (Negative); Urine Protein Negative (Negative); Urine Specific Gravity 1.017 (1.010-1.030); Urine Urobilinogen Negative (Negative)
[2018-08-18] MEDS: Lisinopril TAB* 5 MG PO SCH (07:33)
[2018-08-18] MEDS: FLUoxetine CAP* 20 MG PO SCH (07:37)
[2018-08-18] MEDS: glipiZIDE TAB.XL* 5 MG PO SCH (07:38)
[2018-08-18] MEDS: Insulin LISPRO* 1 UNITS UNIT SUBCUT SCH ×4 (07:38→20:48)
[2018-08-18] MEDS: Atenolol TAB* 50 MG PO SCH ×2 (07:38→20:48)
[2018-08-18] MEDS: Acetaminophen TAB* 325 MG PO PRN (07:46)
--- NOTE | 2018-08-18 08:08 | HP ---
CC: Dr. Archer.* HISTORY AND PHYSICAL: DATE OF ADMISSION: 08/18/18 PRIMARY CARE PROVIDER: Dr. Archer. CHIEF COMPLAINT: Difficulty walking. HISTORY OF PRESENT ILLNESS: Ms. Gong is a 77-year-old female, who presented to the emergency room with complaints of difficulty walking. The patient states that over the last 1 month or so, she has been utilizing a cane to get along. Over the last 1 week, however, she has needed to use both the cane as well as holding onto furniture or the wall. A caregiver was present and noted her mobility was off and therefore called an ambulance. The patient is a very poor historian due to history of dementia and is really unable to provide any additional history. PAST MEDICAL HISTORY: 1. Dementia. 2. Hypertension. 3. Type 2 diabetes. This is all based of prior history and physical. 4. Depression. PAST SURGICAL HISTORY: 1. Tonsillectomy. 2. Cholecystectomy. MEDICATIONS: 1. Metformin 500 mg p.o. daily. 2. Glipizide XL 5 mg p.o. daily. 3. Seroquel 50 mg p.o. nightly. 4. Lisinopril 2.5 mg p.o. daily. 5. Fluoxetine 20 mg p.o. daily. 6. Atenolol 50 mg p.o. twice daily. 7. Tylenol 325 mg p.o. q.6 hours p.r.n. pain. It is unclear if this is an accurate medication list as the patient is unable to tell me what medication she takes. This should be confirmed with the patient 's primary care provider. ALLERGIES: SULFA medications. FAMILY HISTORY: Mom reportedly of "old age." She supposedly had a history of hypertension. Dad had a history of coronary disease, again the reliability of this history is poor. SOCIAL HISTORY: The patient is a nonsmoker. She drinks alcohol rarely. 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 She is . She had 3 children, 1 child in a plane crash. She has 2 sons that are living, but they do not live locally. REVIEW OF SYSTEMS: The patient denies any fevers or chills. She states that her appetite has been poor. She attributes this being severely depressed related to the passing of her approximately 1 year ago, though she states that it was not a year ago and it is only a couple months ago. She admits to edema, but is unable to tell me how long it has been there. The rest of the 11-point review of systems is negative or as per HPI. PHYSICAL EXAMINATION GENERAL: The patient is a well-developed, elderly female, who is somewhat hirsute and unkempt, lying in the bed, in no acute distress. VITAL SIGNS: Blood pressure 143/66, pulse 70, respirations 19, temp 97.9, O2 sat 95% on room air. HEENT: Pupils are equal and round. Extraocular muscles are intact. Oropharynx is clear. Oral mucosa is moist. There is no submandibular, cervical or supraclavicular adenopathy. Thyroid is not enlarged. No thyroid nodules noted. PULMONARY: Lungs are clear to auscultation bilaterally. CARDIAC: Normal S1, S2. Regular rate and rhythm. I do not appreciate any murmurs. There is left greater than right 2 to 3+ pitting edema of the bilateral lower extremities. There is additionally a hematoma on the anterior surface of the left lower leg. The patient thinks she got this by falling. ABDOMEN: Bowel sounds are present. Abdomen is soft, nontender, nondistended. MUSCULOSKELETAL: There is no cyanosis or clubbing of the digits. There is full active range of motion of all 4 extremities. SKIN: Warm and dry. There are no rashes. There is the bruising noted to the left anterior lower leg. She has very dry flaky skin noted on the lower legs and feet bilaterally. NEUROLOGIC: Cranial nerves II through XII are grossly intact. Sensation is intact to light touch throughout. Strength is 5/5 and symmetric in both upper and lower extremities bilaterally. PSYCH: The patient is alert. She is pleasantly confused. She repeats herself several times. DIAGNOSTIC STUDIES/LAB DATA: Labs: WBC 8.5, hemoglobin 13.9, hematocrit 39, platelets 265. INR 0.9. Sodium 135, potassium 4.1, chloride 98, CO2 of 30, BUN 22, creatinine 0.84, glucose 203, lactic acid 1.3, calcium 9.5, magnesium 1.9. Bilirubin 0.4, AST 11, ALT 12, alk phos 72. Troponin 0 x2. BNP 70. Albumin 4.0. Chest x-ray to my interpretation appears clear. Venous Doppler of the lower extremities revealed no evidence of DVT at the left lower leg. ASSESSMENT AND PLAN: Ms. Gong is a 77-year-old female with a history of dementia, depression, hypertension, and type 2 diabetes, who presented to the emergency room after the caregiver found her to be unstable on her feet. 1. Repeated falls and deconditioning. The patient states that she has not been ambulating much at home, as she feels weak and is afraid of falling. Therefore, she thinks that she is getting weaker by not getting up and ambulating. She also, however, tells me that she does not see anybody in her home; however, reportedly a caregiver came over on the day prior to admission and saw her and had her brought to the emergency room. The patient's history giving reliability is quite poor. The patient has no clear reason for the fall. I will obtain a urinalysis. We also check a transthoracic echocardiogram. PT evaluation has been ordered. The patient likely is not safe to return to independent living at home. She may be a good candidate for an enhanced assisted living. 2. Type 2 diabetes. I am going to continue the patient at her usual dose of glipizide XL and metformin. Fingersticks will be monitored a.c. and h.s. Lispro sliding scale will be utilized for coverage. 3. Hypertension. The patient will be maintained on her usual home medication regimen. 4. Dementia. We will continue supportive care. We will continue Seroquel at bedtime. 5. DVT prophylaxis: According to the Adult Thrombosis Prophylaxis Risk Factor Assessment Guide, the patient has a total risk factor score of 5, making her high risk. The patient will be placed on heparin 5000 units subcutaneous q.8 hours. 6. Code status is DNR. MOLST form is updated. TIME SPENT: Sixty five minutes was spent admitting this patient. [id number]/[facility] #: [id number] BRYANT
[2018-08-18] MEDS ORDERED: metFORMIN* 500 MG TAB PO SCH (09:00)
[2018-08-18] MEDS: Nystatin TOP POWDER* 15 GM BTL TOPICAL SCH ×3 (09:32→20:49)
[2018-08-18 10:20] LABS: TSH (Thyroid Stimulating Horm) 2.13 mcIU/mL (0.34-5.60)
--- NOTE | 2018-08-18 15:20 | PN ---
Subjective Date of Service: 08/18/18 Interval History: Patient is very pleasantly confused and in good spirits. Patient states she is still very anxious about walking. Patient endorses worsening numbness without pain in her B/L feet which has been getting worse over a year. Patient denies F/ C, N/V, abdominal pain, diarrhea, CP, SOB, dizziness on standing, dysuria, or other pain. Patient was unaware of the swelling in her legs until this point and cannot elaborate on it's timeline. Family History: Unchanged from Admission Social History: Unchanged from Admission Past Medical History: Unchanged from Admission Objective Active Medications: Acetaminophen (Tylenol Tab*) 650 mg PO Q4H PRN PRN Reason: PAIN Last Admin: 08/18/18 07:46 Dose: 650 mg Atenolol (Tenormin Tab*) 50 mg PO 0900,2100 [facility] Last Admin: 08/18/18 07:38 Dose: 50 mg Cyanocobalamin (Vitamin B12 Tab*) 1,000 mcg PO DAILY [facility] Dextrose (D50w Syringe 50 Ml*) 12.5 gm IV PUSH .FOR FS < 60 - SS PRN PRN Reason: FS < 60 Fluoxetine HCl (Prozac Cap*) 20 mg PO QAM [facility] Last Admin: 08/18/18 07:37 Dose: 20 mg Glipizide (Glucotrol Xl*) 5 mg PO QAM [facility] Last Admin: 08/18/18 07:38 Dose: 5 mg Insulin Human Lispro (Humalog*) 0 units SUBCUT [facility]; Protocol Last Admin: 08/18/18 12:18 Dose: 3 units Lisinopril (Prinivil Tab*) 2.5 mg PO QAM [facility] Last Admin: 08/18/18 07:33 Dose: 2.5 mg Metformin HCl (Glucophage*) 500 mg PO DAILY [facility] Last Admin: 08/18/18 07:37 Dose: 500 mg Nystatin (Nystatin Top Powder*) 1 applic TOPICAL TID [facility] Last Admin: 08/18/18 12:19 Dose: 1 applic Quetiapine Fumarate (Seroquel Tab*) 25 mg PO BEDTIME [facility] Vital Signs - 8 hr 08/18/18 08/18/18 07:53 08:00 Temperature 97.6 F Pulse Rate 73 Respiratory 18 18 Rate Blood Pressure 139/77 (mmHg) O2 Sat by Pulse 96 Oximetry Oxygen Devices in Use Now: None Appearance: Patient is a 77yo female who appears stated age and is sitting in the bed in NAD. Eyes: No Scleral Icterus, PERRLA Ears/Nose/Mouth/Throat: NL Teeth, Lips, Gums, Clear Oropharnyx, Mucous Membranes Moist Neck: NL Appearance and Movements; NL JVP, Trachea Midline Respiratory: Symmetrical Chest Expansion and Respiratory Effort, Clear to Auscultation Cardiovascular: NL Sounds; No Murmurs; No JVD, RRR, No Edema Abdominal: NL Sounds; No Tenderness; No Distention, No Hepatosplenomegaly Lymphatic: No Cervical Adenopathy Extremities: No Edema, No Clubbing, Cyanosis Skin: No Rash or Ulcers, No Nodules or Sclerosis Neurological: NL Muscle Strength and Tone, - - B/L Decreased sensation in the feet. Cerebellar testing performed without difficulty. Negative Romberg. Alert and oriented to self and place. Result Diagrams: 08/17/18 23:24 08/17/18 23:24 Additional Lab and Data: Lab Results Assess/Plan/Problems-Billing Assessment: Patient is a 77yo female with a PMH for DM II, HTN and Dementia who presents with falls and ambulation difficulty who has complaints of peripheral neuropathy and is currently unsafe to return home alone. - Patient Problems (1) Falls Current Visit: Yes Status: Acute Comment: - Patient has been falling at home and is very aprehensive about ambulation - Patient endorses peripheral sensory neuropathy and a general sense of being off balance when walking - Also has leg edema - Likely combination of neuropathy, dementia, and edema leading to ambulation difficulty - PT/OT and possible placement or increased level fo care. (2) Type 2 diabetes mellitus Current Visit: No Status: Chronic Comment: - Continue home metformin and glipizide - A1c 7.5% - Likely cause of neuropathy - Will increase oral meds. (3) Dementia with behavioral disturbance Current Visit: No Status: Acute Code(s): F03.91 - UNSPECIFIED DEMENTIA WITH BEHAVIORAL DISTURBANCE SNOMED Code(s): 5798059273439 Comment: - Appears to be exacerbated by 's recent - Confused but not suicidal as previously. (4) Depression Current Visit: No Status: Chronic Code(s): F32.9 - MAJOR DEPRESSIVE DISORDER , SINGLE EPISODE, UNSPECIFIED SNOMED Code(s): 53337781 Comment: Continue seroquel and fluoxetine. (5) Leg edema Current Visit: Yes Status: Acute Code(s): R60.0 - LOCALIZED EDEMA SNOMED Code(s): 375414355 Comment: - No calf tenderness - Will check echo and elevate legs - No DVT. (6) HTN (hypertension) Current Visit: No Status: Chronic Code(s): I10 - ESSENTIAL (PRIMARY) HYPERTENSION SNOMED Code(s): 63839783 Comment: - Normotensive - Continue home lisinopril and atenolol (7) DVT prophylaxis Current Visit: No Status: Acute Code(s): JMY9901 - SNOMED Code(s): 335367953 Comment: - SQ heparin Status and Disposition: Observation of ambulation difficulty
[2018-08-18] MEDS: Cyanocobalamin TAB* 500 MCG PO SCH (17:10)
[2018-08-18] MEDS: QUEtiapine TAB* 25 MG PO SCH (20:48)
[2018-08-18] MEDS ORDERED: QUEtiapine XR TAB* 50 MG PO SCH (21:00)
[2018-08-19 07:53] LABS: BUN/Creatinine Ratio 23.8 (8-20); Calcium 9.2 mg/dL (8.6-10.3); EGFR Non-African American 65.6 (>60); Potassium 4.1 mmol/L (3.5-5.0)
[2018-08-19] MEDS: Cyanocobalamin TAB* 500 MCG PO SCH (08:59)
[2018-08-19] MEDS: Atenolol TAB* 50 MG PO SCH ×2 (09:00→20:45)
[2018-08-19] MEDS: FLUoxetine CAP* 20 MG PO SCH (09:00)
[2018-08-19] MEDS: Lisinopril TAB* 5 MG PO SCH (09:00)
[2018-08-19] MEDS: Insulin LISPRO* 1 UNITS UNIT SUBCUT SCH ×4 (09:00→20:46)
[2018-08-19] MEDS: metFORMIN* 500 MG TAB PO SCH ×2 (09:06→20:44)
[2018-08-19] MEDS: Nystatin TOP POWDER* 15 GM BTL TOPICAL SCH ×3 (09:06→20:55)
[2018-08-19] MEDS: glipiZIDE TAB.XL* 5 MG PO SCH (09:06)
--- NOTE | 2018-08-19 10:37 | ECHO ---
Patient: AN[facility] Rec#: [id number] : 1940 Date: 08/19/2018 Age: 77y Height: 165 cm / 65.0 in Weight: 82 kg / 180.7 lbs Sex: F BSA: 1.89 Room#: [facility] Admit Date#: 08/18/2018 Type: Inpatient Referring: Katy Ross DO Reading: Dorian Carrion MD Sap Basis: Zita Salguero,MELISSACS,RDMS CC: Juju Archer MD Transthoracic Echocardiogram Indication: Edema BP: 138/58 HR: 64 Rhythm: NSR Findings History: HTN, DM Technical Comments: The study quality is good. Left Ventricle: The left ventricular chamber size is decreased. Mild to moderate concentric left ventricular hypertrophy is observed. There is normal left ventricular systolic function. The estimated ejection fraction is 60-65%. There is an E to A reversal in the mitral valve flow pattern suggestive of diastolic dysfunction. Left Atrium: The left atrium is slightly dilated. Right Ventricle: The right ventricular chamber size and systolic function are within normal limits. Right Atrium: The right atrium is slightly dilated. Aortic Valve: The aortic valve is trileaflet. The aortic valve leaflets are mildly thickened. Systolic excursion of the aortic valve is normal. There is aortic annular calcification. There is a trace of aortic regurgitation. There is no evidence of aortic stenosis. Mitral Valve: There is mitral annular calcification. The mitral valve leaflets are mildly thickened. There is a trace of mitral regurgitation. There is no evidence of mitral stenosis. Tricuspid Valve: The tricuspid valve leaflets are normal. There is mild tricuspid regurgitation. There is evidence of mild pulmonary hypertension. Pulmonic Valve: The pulmonic valve appears normal. There is no evidence of pulmonic regurgitation. Pericardium: There is no significant pericardial effusion. Aorta: The aortic root appears normal. There is no dilatation of the aortic arch. Pulmonary Artery: The main pulmonary artery is not well visualized. Venous: The inferior vena cava is not visualized. Summary: There was not any prior study for comparison. Conclusions Mild to moderate concentric left ventricular hypertrophy is observed. There is normal left ventricular systolic function. The estimated ejection fraction is 60-65%. The aortic valve leaflets are mildly thickened. There is a trace of aortic regurgitation. The mitral valve leaflets are mildly thickened. There is a trace of mitral regurgitation. There is mild tricuspid regurgitation. There is no significant pericardial effusion. Measurements Name Value Normal Range RVIDd (AP) 2D 3.1 cm (0.9 - 2.6) RVDdMajor (2D) 2.8 cm (2.2 - 4.4) RAd ISD 4CH 5.1 cm (3.4 - 4.9) RA (A4C)W 3.4 cm (2.9 - 4.6) IVSd (2D) 1.5 cm (0.6 - 1) LVPWd (2D) 1.2 cm (0.6 - 1) LVIDd (2D) 2.9 cm (3.6 - 5.4) LVIDs (2D) 1.3 cm - LV FS (2D) 53 % (25 - 45) Aortic Annulus 2 cm (1.4 - 2.6) Ao root diameter (2D) 3.2 cm (2.1 - 3.5) Ascending Ao 2.6 cm (2.1 - 3.4) Aortic arch 3 cm (1.8 - 3.4) LA dimension (AP) 2D 3.6 cm (2.3 - 3.8) LAd ISD 4CH 5.5 cm (2.9 - 5.3) LA ISD 4CH W 4.2 cm (2.5 - 4.5) Name Value Normal Range LA ESV BP (A/L) index 33 ml/m2 - Name Value Normal Range MV E-wave Vmax 0.9 m/sec - MV deceleration time 267 msec - MV A-wave Vmax 1.4 m/sec - MV E:A ratio 0.6 ratio - P. vein S-wave Vmax 0.5 m/sec - P. vein D-wave Vmax 0.3 m/sec - P. vein S:D Vmax ratio 1.5 ratio - P. vein A-wave duration 116 msec - LV septal e' Vmax 0.05 m/sec - LV lateral e' Vmax 0.05 m/sec - LV E:e' septal ratio 17 ratio - LV E:e' lateral ratio 17 ratio - Name Value Normal Range AV Vmax 1.3 m/sec - AV VTI 30 cm - AV peak gradient 7 mmHg - AV mean gradient 4 mmHg - LVOT Vmax 1.2 m/sec - LVOT VTI 32 cm - LVOT peak gradient 6 mmHg - LVOT mean gradient 3 mmHg - TRAM Vmax 0.7 m/sec - Name Value Normal Range MV Vmax 1.5 m/sec - MV VTI 43 cm - MV peak gradient 9 mmHg - MV mean gradient 3 mmHg - MV PHT 110 msec - MVA (PHT) 2 cm2 - Name Value Normal Range TR Vmax 2.9 m/sec - TR peak gradient 34 mmHg - RAP 8 mmHg - RVSP 42 mmHg - Name Value Normal Range PV Vmax 0.8 m/sec - PV peak gradient 2.6 mmHg -
[2018-08-19] MEDS ORDERED: Furosemide IV* 10 MG/ML 2 ML VIAL (20 MG) IV SLOW PU ONE (13:28)
--- NOTE | 2018-08-19 14:48 | PN ---
Subjective Date of Service: 08/19/18 Interval History: Patient remains pleasantly confused. Dislikes using walker. Was very confused and somewhat combative overnight. Patient has no complaints, denies F/C, N/V, abdominal pain, diarrhea, CP, SOB. Patient is amenable at this time to rehab. Patient still feels unsteady when walking. Family History: Unchanged from Admission Social History: Unchanged from Admission Past Medical History: Unchanged from Admission Objective Active Medications: Acetaminophen (Tylenol Tab*) 650 mg PO Q4H PRN PRN Reason: PAIN Last Admin: 08/18/18 07:46 Dose: 650 mg Atenolol (Tenormin Tab*) 50 mg PO 09,2100 [facility] Last Admin: 08/19/18 09:00 Dose: 50 mg Cyanocobalamin (Vitamin B12 Tab*) 1,000 mcg PO DAILY [facility] Last Admin: 08/19/18 08:59 Dose: 1,000 mcg Dextrose (D50w Syringe 50 Ml*) 12.5 gm IV PUSH .FOR FS < 60 - SS PRN PRN Reason: FS < 60 Fluoxetine HCl (Prozac Cap*) 20 mg PO QAM [facility] Last Admin: 08/19/18 09:00 Dose: 20 mg Glipizide (Glucotrol Xl*) 5 mg PO QAM [facility] Last Admin: 08/19/18 09:06 Dose: 5 mg Insulin Human Lispro (Humalog*) 0 units SUBCUT [facility]; Protocol Last Admin: 08/19/18 12:27 Dose: 9 units Lisinopril (Prinivil Tab*) 2.5 mg PO QAM [facility] Last Admin: 08/19/18 09:00 Dose: 2.5 mg Metformin HCl (Glucophage*) 500 mg PO BID [facility] Last Admin: 08/19/18 09:06 Dose: 500 mg Nystatin (Nystatin Top Powder*) 1 applic TOPICAL TID [facility] Last Admin: 08/19/18 13:58 Dose: 1 applic Quetiapine Fumarate (Seroquel Tab*) 25 mg PO BEDTIME [facility] Last Admin: 08/18/18 20:48 Dose: 25 mg Vital Signs - 8 hr 08/19/18 08/19/18 08/19/18 08:00 08:26 11:46 Temperature 97.5 F 98.0 F Pulse Rate 64 68 Respiratory 17 18 17 Rate Blood Pressure 120/49 127/49 (mmHg) O2 Sat by Pulse 96 97 Oximetry Oxygen Devices in Use Now: None Appearance: Patient is a 77yo female who appears stated age and is sitting in the bed in NAD. Eyes: No Scleral Icterus, PERRLA Ears/Nose/Mouth/Throat: NL Teeth, Lips, Gums, Clear Oropharnyx, Mucous Membranes Moist Neck: NL Appearance and Movements; NL JVP, Trachea Midline Respiratory: Symmetrical Chest Expansion and Respiratory Effort, Clear to Auscultation Cardiovascular: NL Sounds; No Murmurs; No JVD, RRR Abdominal: NL Sounds; No Tenderness; No Distention, No Hepatosplenomegaly Lymphatic: No Cervical Adenopathy Extremities: No Clubbing, Cyanosis, - - 2+ LE edema with erythema. Skin: No Nodules or Sclerosis Neurological: Alert and Oriented x 3, NL Sensation, NL Muscle Strength and Tone , - - CN II-XII intact. Result Diagrams: 08/17/18 23:24 08/19/18 06:59 Additional Lab and Data: Lab Results Microbiology and Other Data: Microbiology 08/17/18 23:24 Aerobic Blood Culture - Preliminary Blood Venous No Growth Day 1 Anaerobic Blood Culture - Preliminary No Growth Day 1 08/17/18 23:20 Aerobic Blood Culture - Preliminary Blood Venous No Growth Day 1 Anaerobic Blood Culture - Preliminary No Growth Day 1 Assess/Plan/Problems-Billing Assessment: Patient is a 77yo female with a PMH for DM II, HTN and Dementia who presents with falls and ambulation difficulty who has complaints of peripheral neuropathy and is currently unsafe to return home alone. - Patient Problems (1) Falls Current Visit: Yes Status: Acute Comment: - Patient has been falling at home and is very aprehensive about ambulation - Patient endorses peripheral sensory neuropathy and a general sense of being off balance when walking - Also has leg edema - Likely combination of neuropathy, dementia, and edema leading to ambulation difficulty - PT/OT and possible placement or increased level fo care. - Lasix with F/U BMP (2) Type 2 diabetes mellitus Current Visit: No Status: Chronic Comment: - Continue home metformin and glipizide - A1c 7.5% - Likely cause of neuropathy - Will increase oral meds. (3) Dementia with behavioral disturbance Current Visit: No Status: Acute Code(s): F03.91 - UNSPECIFIED DEMENTIA WITH BEHAVIORAL DISTURBANCE SNOMED Code(s): 2220597782282 Comment: - Appears to be exacerbated by 's recent - Confused but not suicidal as previously. (4) Depression Current Visit: No Status: Chronic Code(s): F32.9 - MAJOR DEPRESSIVE DISORDER , SINGLE EPISODE, UNSPECIFIED SNOMED Code(s): 15343184 Comment: - Continue seroquel and fluoxetine. (5) Leg edema Current Visit: Yes Status: Acute Code(s): R60.0 - LOCALIZED EDEMA SNOMED Code(s): 888259396 Comment: - No calf tenderness - Echo shows Diastolic Dysfunction - No DVT. - Low dose Lasix and watch BMP - ADAM stockings and leg elevation. (6) HTN (hypertension) Current Visit: No Status: Chronic Code(s): I10 - ESSENTIAL (PRIMARY) HYPERTENSION SNOMED Code(s): 31141487 Comment: - Normotensive - Continue home lisinopril and atenolol (7) DVT prophylaxis Current Visit: No Status: Acute Code(s): AQC1857 - SNOMED Code(s): 970179917 Comment: - SQ heparin Status and Disposition: Observation for ambulation difficulty
[2018-08-19] MEDS: QUEtiapine TAB* 25 MG PO SCH (20:44)
[2018-08-20] MEDS: Insulin LISPRO* 1 UNITS UNIT SUBCUT SCH ×4 (07:46→21:40)
--- NOTE | 2018-08-20 08:26 | PN ---
Subjective Date of Service: 08/20/18 Interval History: Patient seen and examined at bedside. Denies fever, chills, shortness of breath , chest discomfort, N/V/D. Renea was able to ambulate to the bathroom today with minimal difficulty and a walker. Denies numbness or tingling in bilateral LEs but states that she has decreased sensation in her LEs. Family History: Unchanged from Admission Social History: Unchanged from Admission Past Medical History: Unchanged from Admission Objective Active Medications: Acetaminophen (Tylenol Tab*) 650 mg PO Q4H PRN Reason: PAIN Atenolol (Tenormin Tab*) 50 mg PO 0900,2100 [facility] Cyanocobalamin (Vitamin B12 Tab*) 1,000 mcg PO DAILY [facility] Dextrose (D50w Syringe 50 Ml*) 12.5 gm IV PUSH .FOR FS < 60 - SS PRN Reason: FS < 60 Fluoxetine HCl (Prozac Cap*) 20 mg PO QAM [facility] Furosemide (Lasix Tab*) 20 mg PO DAILY [facility] Glipizide (Glucotrol Xl*) 5 mg PO QAM [facility] Influenza Virus Vaccine (Fluarix *Quad* 2018-*) 0.5 ml IM .ONCE ONE Stop: 08/20/18 09:01 Insulin Human Lispro (Humalog*) 0 units SUBCUT [facility]; Protocol Lisinopril (Prinivil Tab*) 2.5 mg PO QAM [facility] Metformin HCl (Glucophage*) 500 mg PO BID [facility] Nystatin (Nystatin Top Powder*) 1 applic TOPICAL TID [facility] Quetiapine Fumarate (Seroquel Tab*) 25 mg PO BEDTIME [facility] Oxygen Devices in Use Now: None Appearance: NAD, sitting up in a chair Ears/Nose/Mouth/Throat: Mucous Membranes Moist Respiratory: Symmetrical Chest Expansion and Respiratory Effort, Clear to Auscultation Cardiovascular: NL Sounds; No Murmurs; No JVD, RRR Abdominal: NL Sounds; No Tenderness; No Distention Extremities: - - Bilateral LE edema Skin: No Rash or Ulcers Neurological: Alert and Oriented x 3, NL Muscle Strength and Tone Nutrition: Taking PO's Result Diagrams: 08/21/18 05:33 08/20/18 12:24 Additional Lab and Data: . Microbiology and Other Data: Microbiology 08/17/18 23:24 Aerobic Blood Culture - Preliminary Blood Venous No Growth Day 1 Anaerobic Blood Culture - Preliminary No Growth Day 1 12/01/18 23:20 Aerobic Blood Culture - Preliminary Blood Venous No Growth Day 1 Anaerobic Blood Culture - Preliminary No Growth Day 1 Assess/Plan/Problems-Billing Assessment: Ms. Gong is a 77yo female with a PMH significant for DM II, HTN and Dementia who presents with falls and ambulation difficulty who has complaints of peripheral neuropathy and is currently unsafe to return home alone. - Patient Problems (1) Falls Comment: - Patient has been falling at home and is very aprehensive about ambulation - Patient endorses peripheral sensory neuropathy and a general sense of being off balance when walking - Suspect combination of peripheral neuropathy, dementia, and edema leading to ambulation difficulty - PT/OT and possible placement or increased level fo care (2) Leg edema Code(s): R60.0 - LOCALIZED EDEMA SNOMED Code(s): 347439319 Comment: - No calf tenderness - Echo shows Diastolic Dysfunction - No DVT on Venous doppler - Continue ADAM stockings, leg elevation, Low dose Lasix and monitor BMP (3) Type 2 diabetes mellitus Comment: - with associated peripheral neuropathy - Glucose 120-270's - HgA1c 7.5% - Continue home metformin and glipizide (4) Dementia with behavioral disturbance Code(s): F03.91 - UNSPECIFIED DEMENTIA WITH BEHAVIORAL DISTURBANCE SNOMED Code (s): 6031957908144 Comment: - Appears to be exacerbated by 's recent - Confused, not suicidal - Continue Seroquel and Prozac (5) Depression Code(s): F32.9 - MAJOR DEPRESSIVE DISORDER, SINGLE EPISODE, UNSPECIFIED SNOMED Code(s): 82843755 Comment: - Mood stable - Continue seroquel and fluoxetine (6) DVT prophylaxis Code(s): EEJ7742 - SNOMED Code(s): 329433991 Comment: - TEDs (7) DNR (do not resuscitate) Status and Disposition: Observation. Will need placement, has a bed offer at [facility]. Will be ready for discharge in the AM. Counseling and/or Coordination of Care Minutes: 40
[2018-08-20] MEDS: Cyanocobalamin TAB* 500 MCG PO SCH (09:55)
[2018-08-20] MEDS: Lisinopril TAB* 5 MG PO SCH (09:55)
[2018-08-20] MEDS: Furosemide TAB* 20 MG PO SCH (09:55)
[2018-08-20] MEDS: glipiZIDE TAB.XL* 5 MG PO SCH (09:56)
[2018-08-20] MEDS: FLUoxetine CAP* 20 MG PO SCH (09:56)
[2018-08-20] MEDS: Nystatin TOP POWDER* 15 GM BTL TOPICAL SCH ×3 (09:56→21:42)
[2018-08-20] MEDS: Atenolol TAB* 50 MG PO SCH ×2 (09:56→21:40)
[2018-08-20] MEDS: metFORMIN* 500 MG TAB PO SCH ×2 (09:56→21:39)
[2018-08-20 12:43] LABS: ABS Basophils 0.1 10^3/ul (0-0.2); ABS Eosinophils 0.2 10^3/ul (0-0.6); ABS Lymphocytes 1.8 10^3/ul (1.0-4.8); ABS Monocytes 0.9 10^3/ul (0-0.8); ABS Neutrophils 8.2 10^3/ul (1.5-7.7); ABS Nucleated RBC 0 10^3/ul; Eosinophil % 2.1 %; Hematocrit 42 % (35-47); Hemoglobin 14.3 g/dl (12.0-16.0); Lymphocyte % 15.8 %; Mean Corpuscular HGB Conc 34 g/dl (31-36); Mean Corpuscular Hemoglobin 31 pg (27-31); Mean Corpuscular Volume 90 fL (80-97); Mean Platelet Volume 7.4 fL (7.4-10.4); Nucleated Red Blood Cells % 0.1; Platelet Count 268 10^3/ul (150-450); Red Blood Count 4.67 10^6/ul (4.00-5.40); Red Cell Distribution Width 14 % (10.5-15); White Blood Count 11.2 10^3/ul (3.5-10.8)
[2018-08-20 12:59] LABS: BUN/Creatinine Ratio 29.2 (8-20); Calcium 9.7 mg/dL (8.6-10.3); EGFR Non-African American 56.2 (>60); Magnesium 1.9 mg/dL (1.9-2.7); Potassium 4.4 mmol/L (3.5-5.0)
[2018-08-20] MEDS: QUEtiapine TAB* 25 MG PO SCH (21:39)
[2018-08-21] MEDS: Acetaminophen TAB* 325 MG PO PRN (02:08)
[2018-08-21 05:45] LABS: ABS Basophils 0.1 10^3/ul (0-0.2); ABS Eosinophils 0.2 10^3/ul (0-0.6); ABS Lymphocytes 2.3 10^3/ul (1.0-4.8); ABS Monocytes 0.9 10^3/ul (0-0.8); ABS Nucleated RBC 0 10^3/ul; Eosinophil % 1.9 %; Hematocrit 36 % (35-47); Hemoglobin 12.5 g/dl (12.0-16.0); Lymphocyte % 21.7 %; Mean Corpuscular HGB Conc 35 g/dl (31-36); Mean Corpuscular Hemoglobin 31 pg (27-31); Mean Corpuscular Volume 89 fL (80-97); Mean Platelet Volume 7.3 fL (7.4-10.4); Nucleated Red Blood Cells % 0.1; Platelet Count 208 10^3/ul (150-450); Red Blood Count 4.04 10^6/ul (4.00-5.40); Red Cell Distribution Width 14 % (10.5-15); White Blood Count 10.4 10^3/ul (3.5-10.8)
[2018-08-21] MEDS ORDERED: Polyethylene Glycol 3350* 17 GM PACKET PO PRN (06:21)
[2018-08-21] MEDS: Insulin LISPRO* 1 UNITS UNIT SUBCUT SCH ×4 (07:50→20:42)
[2018-08-21] MEDS: metFORMIN* 500 MG TAB PO SCH ×3 (10:07→20:41)
[2018-08-21] MEDS: Atenolol TAB* 50 MG PO SCH ×3 (10:07→20:41)
[2018-08-21] MEDS: Furosemide TAB* 20 MG PO SCH ×2 (10:07→10:11)
[2018-08-21] MEDS: glipiZIDE TAB.XL* 5 MG PO SCH ×2 (10:07→10:11)
[2018-08-21] MEDS: Lisinopril TAB* 5 MG PO SCH ×2 (10:07→10:12)
[2018-08-21] MEDS: FLUoxetine CAP* 20 MG PO SCH ×2 (10:07→10:11)
[2018-08-21] MEDS: Cyanocobalamin TAB* 500 MCG PO SCH ×2 (10:07→10:11)
[2018-08-21] MEDS: Nystatin TOP POWDER* 15 GM BTL TOPICAL SCH ×3 (10:08→20:43)
[2018-08-21] MEDS ORDERED: Magnesium Hydroxide LIQ* 30 ML UDC PO PRN (11:39)
--- NOTE | 2018-08-21 13:05 | DS ---
CC: Dr. Juju Archer * DATE OF ADMISSION: 08/18/2018. DATE OF DISCHARGE: 08/22/2018. PRIMARY CARE PHYSICIAN: Dr. Juju Archer. ATTENDING PHYSICIAN: Dr. Janee Bustamante * (dictated by Jodi Tavares NP). PRINCIPAL DIAGNOSES: 1. Lower extremity edema secondary to congestive heart failure. 2. Peripheral neuropathy secondary to diabetes and vitamin B12 deficiency. 3. Frequent falls. SECONDARY DIAGNOSES: 1. Diabetes mellitus type 2. 2. Dementia. 3. Depression. STUDIES WHILE IN THE HOSPITAL: 1. Chest x-ray, 08/17/2018, reads as no evidence for acute disease. 2. EKG, 08/17/2018, shows normal sinus rhythm with a rate of 63, QTC 451, no ischemic changes. 3. Left lower extremity venous Doppler study, 08/17/2018, reads as no acute findings, no evidence of deep vein thrombosis. 4. Transthoracic echocardiogram, 08/18/2018, reads as mild to moderate concentric left ventricular hypertrophy is observed. There is normal left ventricular systolic function. The estimated ejection fraction is 60 to 65 percent. The aortic valve leaflets are mildly thickened. There is trace aortic regurgitation. The mitral valve leaflets are mildly thickened. There is trace mitral regurgitation. There is mild tricuspid regurgitation. There is no significant pericardial effusion. HISTORY OF PRESENT ILLNESS AND HOSPITAL COURSE: Ms. Gong is a 77-year- old female with a past medical history of diabetes mellitus type 2, hypertension , and dementia who presented to the emergency room on 08/18/2018 with complaints of difficulty walking. Please see the history and physical by Dr. Ross for a complete summary of the events leading up to this hospitalization. In short, the patient reported that over the last month or so she began having difficulty walking and was needing to use a cane to ambulate. I will note that she is a poor historian due to her dementia and she was unable to offer any further information. She was admitted by the Hospitalist service for repeated falls. She was seen by Physical Therapy who recommended placement. The patient does have peripheral neuropathy secondary to diabetes; however, she was also noted to have a vitamin B12 of 187, putting her at the lower limit of normal and therefore she was started on vitamin B12. She was also noted to have bilateral lower extremity edema. DVT was ruled out. Echocardiogram results are noted above, though are grossly normal, except for some diastolic dysfunction. She was placed on low dose Lasix which she has responded well to. Her dementia appears to be exacerbated by her 's recent . She is not particularly cooperative and nursing has had difficulty administering medication. Her diabetes was moderately well managed with an A1c of 7.5 percent. She was kept on her Metformin and Glipizide while in the hospital. The patient's family felt as though placement would be the best option for the patient at this point. As of the day of discharge, the patient reports feeling well. She feels as though her lower extremity edema appears to be about at baseline. She has +1 pitting edema to the bilateral ankles. I will note that at this time, the patient has not had a bowel movement since 08/17/2018 and flat plate x-ray is pending. Ms. Gong was stable for discharge today. Vital signs are as follows: Temperature 97.8, heart rate 74, respiratory rate 18, oxygen saturation 97 percent on room air, blood pressure 128/56. DISCHARGE MEDICATIONS: New home medications: 1. Vitamin B12 1,000 mcg p.o. daily. 2. Furosemide 20 mg p.o. daily. 3. Milk of Magnesia 30 ml p.o. q.6 hours prn constipation. 4. Nystatin powder one application topically t.i.d. Continued medications: 1. Atenolol 50 mg p.o. b.i.d. 2. Fluoxetine 20 mg p.o. daily. 3. Glipizide 5 mg p.o. daily. 4. Lisinopril 2.5 mg p.o. daily. 5. Metformin 500 mg p.o. daily. 6. Seroquel 25 mg p.o. at bedtime. 7. Acetaminophen 325 mg p.o. q.6 hours prn fever or pain. Discontinued home medications: 1. Levofloxacin (it is unclear why she was taking this). DISCHARGE PLAN: Ms. Gong will be discharged to [facility]. Medications are noted above. The patient has been started on Furosemide and vitamin B12, Nystatin and Milk of Mag have also been added to her medications. Otherwise, she can continue her usual home medications. She should have fingersticks daily or b.i.d. and she should have daily weights due to her edema and known diastolic dysfunction. The patient should return to the emergency room for any worsening symptoms, shortness of breath, lightheadedness, dizziness , chest discomfort, high fevers, chills, night sweats, loss of consciousness, or any other worrisome signs or symptoms. ACTIVITY: As tolerated. DIET: Diabetic. This is a summarized report of a complex medical history and hospital stay. For further details, please see the entire medical record. TIME SPENT: Approximately 35 minutes were spent on this discharge, greater than half of that time was spent [id number] with the patient discussing discharge plans and instructions. JODI TAVARES, BROADCAST PROGRAM DIRECTOR [id number]/[facility] #: [id number] [facility]
[2018-08-21] MEDS ORDERED: LORazepam INJ* 2 MG/ML 1 ML VIAL IV PUSH ONE (15:52)
[2018-08-21] MEDS ORDERED: Haloperidol INJ IV/IM* 5 MG/ML AMP IV SLOW PU ONE (18:10)
[2018-08-21] MEDS: QUEtiapine TAB* 25 MG PO SCH (20:41)
[2018-08-22] MEDS: Cyanocobalamin TAB* 500 MCG PO SCH (08:27)
[2018-08-22] MEDS: glipiZIDE TAB.XL* 5 MG PO SCH (08:27)
[2018-08-22] MEDS: FLUoxetine CAP* 20 MG PO SCH (08:27)
[2018-08-22] MEDS: metFORMIN* 500 MG TAB PO SCH (08:27)
[2018-08-22] MEDS: Lisinopril TAB* 5 MG PO SCH (08:27)
[2018-08-22] MEDS: Furosemide TAB* 20 MG PO SCH (08:27)
[2018-08-22] MEDS: Atenolol TAB* 50 MG PO SCH (08:27)
[2018-08-22] MEDS: Insulin LISPRO* 1 UNITS UNIT SUBCUT SCH ×2 (08:28→12:35)
[2018-08-22] MEDS: Nystatin TOP POWDER* 15 GM BTL TOPICAL SCH ×2 (08:32→13:57)
--- NOTE | 2018-08-22 10:56 | PN ---
Hospitalist Progress Note Date of Service: 08/22/18 Ms. Gong was initially going to be discharged to [facility] on 08/21/18, though she became upset about the transfer and ultimately refused. Nursing staff was unable to convince the patient to agree. The patient does indeed lack capacity to make her own medical decisions and there is a psych consultation from 11/2017 confirming this. Nursing spoke with me last night and I ordered a one time dose of haldol in order to help ease the transfer process. Ultimately, [facility] was then not able to accept the patient due to staffing. This morning, [facility] refused to take the patient because of the need for haldol. I spoke with [facility] administrators, Nelli Palafox and Macario iSngh, this morning regarding placement. There was concern on their end because of the need for haldol and alarms, and they were concerned that the patient was aggressive and/ or combative. I explained that the need for haldol was simply to ease the transfer process, and the use of alarms here in the hospital were for fall prevention. Administration agreed to accept the patient today after 1500. Staff was notified and the plan is to administer haldol approximately 1 hour prior to anticipated transfer. Stretcher transfer will be arranged.
[2018-08-22 15:06] VITALS: BP 120/57
== END 2018-08-22 15:50 | DRG 884 ==
LOC: ED 22:06 → MED 08-18 03:57 → OBSVTOIN 08-19 14:51 → INTOOBSV 08-19 14:51 → OBSVTOIN 08-21 17:00
PROVIDERS: ADMIT Hospitalist; ATTEND Internal Medicine
DX: F03.91 Unspecified dementia, unspecified severity, with behavioral disturbance (principal); E11.42 Type 2 diabetes mellitus with diabetic polyneuropathy; I11.0 Hypertensive heart disease with heart failure; I10 Essential (primary) hypertension; F32.9 Major depressive disorder, single episode, unspecified; E53.8 Deficiency of other specified B group vitamins; R29.6 Repeated falls; I08.3 Combined rheumatic disorders of mitral, aortic and tricuspid valves; Z66 Do not resuscitate; Z23 Encounter for immunization; Z83.3 Family history of diabetes mellitus; Z79.84 Long term (current) use of oral hypoglycemic drugs; Z90.49 Acquired absence of other specified parts of digestive tract; Z82.49 Family history of ischemic heart disease and other diseases of the circulatory system; Z88.2 Allergy status to sulfonamides
CPT/HCPCS: 36415; 71045; 74018; 80048; 80053; 81003; 82607; 83036; 83605; 83735; 83880; 84443; 84484; 85025; 85610; 85730; 86141; 87040; 90686; 93005; 93306; 99285; A9270-GY; G0378; G8978-GP-CK; G8979-GP-CJ; G8987-GO-CK; G8988-GO-CI; J1630; J1940; J2060

== ENCOUNTER 2018-10-23 08:35 | Inpatient (IN) | payer MEDICARE, BC ==
[2018-10-23] MEDS ORDERED: Nicotine Inhaler* 10 MG AMP INH PRN (08:48)
[2018-10-23 09:00] LABS: ABS Basophils 0 10^3/ul (0-0.2); ABS Eosinophils 0.3 10^3/ul (0-0.6); ABS Lymphocytes 1.4 10^3/ul (1.0-4.8); ABS Monocytes 0.5 10^3/ul (0-0.8); ABS Neutrophils 5.8 10^3/ul (1.5-7.7); ABS Nucleated RBC 0 10^3/ul; Eosinophil % 3.6 %; Hematocrit 39 % (35-47); Hemoglobin 13.6 g/dl (12.0-16.0); Lymphocyte % 17.5 %; Mean Corpuscular HGB Conc 35 g/dl (31-36); Mean Corpuscular Hemoglobin 31 pg (27-31); Mean Corpuscular Volume 90 fL (80-97); Mean Platelet Volume 7.5 fL (7.4-10.4); Nucleated Red Blood Cells % 0.2; Platelet Count 259 10^3/ul (150-450); Red Blood Count 4.35 10^6/ul (4.00-5.40); Red Cell Distribution Width 14 % (10.5-15)
--- NOTE | 2018-10-23 09:03 | ED ---
Psychiatric Complaint - HPI Summary HPI Summary: Pt is a 78 y/o female brought in by EMS and police on a 941 who presents to the ED c/o abrasions. As per EMS, she was brought in from the [facility]. As per pt, last night she broke a picture frame and was sweeping up the glass and accidentally cut her wrists. She denies self-harm. However, the pt has a history of dementia and self-harm, and has a visible abrasion to her neck as well as her wrists. Pt is mildly confused and is unsure why she is here. She did not want to come and had to be escorted by the police. As per halfway staff, this is her baseline mental status. She is oriented to place but not date or person. When asked where she lives, she states she lives in a bed and breakfast. Pt is a level 5 caveat due to her dementia. - History Of Current Complaint Hx Obtained From: Patient, EMS Hx From Patient Unobtainable Due To: Dementia Onset/Duration: Gradual Onset, Resolved Timing: Hours - Last night Severity Currently: None Aggravating Factor(s): Nothing Alleviating Factor(s): Nothing Associated Signs And Symptoms: Positive: Negative Related History: Positive For: Prior Psychiatric Issues - self-harm - Allergies/Home Medications Allergies/Adverse Reactions: Allergies Allergy/AdvReac Type Severity Reaction Status Date / Time quetiapine [From Seroquel] Allergy Unknown Verified 10/23/18 10:07 Reaction Details Sulfa (Sulfonamide Allergy Unknown Verified 10/23/18 10:07 Antibiotics) Reaction Details Home Medications: Home Medications Atenolol TAB* [Tenormin TAB* 50 MG] 50 mg PO BID 10/23/18 [History Confirmed 03/05] Cyanocobalamin TAB* [Vitamin B12 TAB*] 1,000 mcg PO DAILY 10/23/18 [History Confirmed 10/23/18] DULoxetine DR CAP* [Cymbalta CAP*] 20 mg PO DAILY 10/23/18 [History Confirmed ] Furosemide TAB* [Lasix TAB*] 20 mg PO DAILY 10/23/18 [History Confirmed 10/23/18 ] Lisinopril [Lisinopril 2.5 MG-] 2.5 mg PO DAILY 10/23/18 [History Confirmed 03/05] Loperamide HCl [Anti-Diarrheal] 2 mg PO DAILY PRN 10/23/18 [History Confirmed ] glipiZIDE TAB* [Glucotrol TAB*] 5 mg PO DAILY 10/23/18 [History Confirmed ] metFORMIN* [Glucophage 500 MG TAB *] 500 mg PO DAILY 10/23/18 [History Confirmed 10/23/18] PMH/Surg Hx/FS Hx/Imm Hx Neurological History: Reports: Hx Dementia Psychiatric History: Reports: Other Psychiatric Issues/Disorders - self-harm Infectious Disease History: No Infectious Disease History: Denies: Traveled Outside the [place] in Last 30 Days - Family History Known Family History: Positive: Unknown - Level 5 caveat - dementia - Social History Lives: At [facility] - dementia wing Alcohol Use: Rare Hx Substance Use: No Substance Use Type: Reports: None Hx Tobacco Use: No Smoking Status (MU): Never Smoked Tobacco Review of Systems Positive: Other - abrasions Neurological: Other - confusion All Other Systems Reviewed And Are Negative: No Physical Exam - Summary Physical Exam Summary: GENERAL: Patient is a well-developed and nourished F who is lying comfortable in the stretcher. Patient is not in any acute respiratory distress. HEAD AND FACE: Normocephalic EYES: PERRLA, EOMI x 2. EARS: Hearing grossly intact. MOUTH: Oropharynx within normal limits. NECK: Supple, trachea is midline, no adenopathy, no JVD, no carotid bruit. CHEST: Symmetric, no tenderness at palpation LUNGS: Clear to auscultation bilaterally. No wheezing or crackles. CVS: Regular rate and rhythm, S1 and S2 present, no murmurs or gallops appreciated. ABDOMEN: Soft, non-tender. Bowel sounds are normal. No abdominal abnormal pulsations. EXTREMITIES: Full ROM in all major joints, no cyanosis or clubbing. NV intact. 1 + non-pitting BLE edema without warmth or erythema. NEURO: Alert and oriented to place only. No acute neurological deficits. Speech is normal and follows commands. SKIN: Dry and warm. Superficial abrasions to the volar aspects of bilateral wrists, and the anterior aspect of the neck. Physical exam is limited by pt's dementia - LEVEL 5 CAVEAT Triage Information Reviewed: Yes Vital Signs On Initial Exam: Initial Vitals Temp Pulse Resp BP Pulse Ox 98.1 F 74 18 167/92 98 10/23/18 08:43 10/23/18 08:43 10/23/18 08:43 10/23/18 08:43 10/23/18 08:43 Vital Signs Reviewed: Yes Diagnostics - Vital Signs Vital Signs Temp Pulse Resp BP Pulse Ox 10/23/18 08:43 98.1 F 74 18 167/92 98 - Laboratory Result Diagrams: 10/23/18 08:55 10/23/18 08:55 Lab Statement: Any lab studies that have been ordered have been reviewed, and results considered in the medical decision making process. Re-Evaluation - Re-Evaluation First Eval Re-Evaluation Time: 09:25 Change: Unchanged Comment: Pt is medically cleared for a MHE. Second Eval Re-Evaluation Time: 01:30 Change: Unchanged Comment: Pt is cleared from a mental health standpoint. However the MH evaluators believe she needs to be consulted by a transition social worker. Course/Dx - Course Course Of Treatment: Pt is a 78 y/o female brought in by EMS and police on a 941 who presents to the ED c/o abrasions. She was both medically and mentally cleared, and had a social workup. Family would like the pt to be placed in fdc care and is willing to pay for it. Pt will be admitted with final dx of altered mental status and abrasions. Case discussed with hospitalist, Dr. Bergeron. I discussed results with patient. The patient agrees with this plan. - Differential Dx/Clinical Impression Provider Diagnosis: Altered mental status, Abrasion - Physician Notifications Discussed Care Of Patient With: [employer] Service Technician Time Discussed With Above Provider: 14:59 Instructed by Provider To: Other - Pt's family would like to pay for her to be put in fdc care. At 15:03 Dr. Bergeron accepts pt for admission. Discharge - Sign-Out/Discharge Documenting (check all that apply): Patient Departure - Admit Patient Received Moderate/Deep Sedation with Procedure: No - Discharge Plan Condition: Stable Disposition: ADMITTED TO [facility] - Billing Disposition and Condition Condition: STABLE Disposition: Admitted to [facility] - Attestation Statements Document Initiated by Scribe: Yes Documenting Scribe: Felicitas Skinner Provider For Whom Scribe is Documenting (Include Credential): Ranulfo Patel MD Scribe Attestation: I, Felicitas Skinner, scribed for Ranulfo Patel MD on 10/23/18 at 1837. Scribe Documentation Reviewed: Yes Provider Attestation: The documentation as recorded by the scribe, Felicitas Skinner accurately reflects the service I personally performed and the decisions made by me, Ranulfo Patel MD Status of Scribe Document: Viewed
[2018-10-23 09:23] LABS: ALT 8 U/L (7-52); AST 11 U/L (13-39); Albumin 3.9 g/dL (3.2-5.2); Albumin/Globulin Ratio 1.6 (1-3); Alkaline Phosphatase 65 U/L (34-104); Anion Gap 8 mmol/L (2-11); BUN/Creatinine Ratio 18.2 (8-20); Blood Urea Nitrogen 16 mg/dL (6-24); CO2 Carbon Dioxide 27 mmol/L (22-32); Calcium 9.5 mg/dL (8.6-10.3); Chloride 106 mmol/L (101-111); Globulin 2.5 g/dL (2-4); Glucose 164 mg/dL (70-100); Potassium 3.5 mmol/L (3.5-5.0); Sodium 141 mmol/L (135-145); Total Protein 6.4 g/dL (6.4-8.9)
[2018-10-23 09:50] LABS: Acetaminophen < 15 mcg/mL; Alcohol < 10 mg/dL (<10); Salicylate < 2.50 mg/dL (<30)
[2018-10-23 12:19] LABS: Urine Appearance Clear; Urine Bilirubin Negative (Negative); Urine Blood Negative (Negative); Urine Color Straw; Urine Glucose Negative (Negative); Urine Ketones Negative (Negative); Urine Nitrite Negative (Negative); Urine Protein Negative (Negative); Urine Specific Gravity 1.008 (1.010-1.030); Urine Urobilinogen Negative (Negative)
[2018-10-23 12:41] LABS: Barbiturates Urine Screen None Detected (None Detect); Benzodiazepine Urine Screen None Detected (None Detect); Urine Cannabinoids Screen None Detected (None Detect)
[2018-10-23] MEDS ORDERED: Acetaminophen TAB* 325 MG PO PRN (15:59)
[2018-10-23] MEDS ORDERED: Mouth Piece, Nicotine* 1 EACH CARTRIDGE INH PRN (16:36)
--- NOTE | 2018-10-23 18:47 | HP ---
CC: Dr. Archer * HISTORY AND PHYSICAL: DATE OF ADMISSION: 10/23/18 PROVIDER: Garth Thomason NP PRIMARY CARE PROVIDER: Dr. Archer. ATTENDING PHYSICIAN WHILE IN THE HOSPITAL: Dr. Mustapha Bergeron * (dictated by Garth Thomason NP). CHIEF COMPLAINT: Suicidal ideation. HISTORY OF PRESENT ILLNESS: Ms. Gong is a 78-year-old female with past medical history significant for major depression, vascular dementia with behavioral disturbances, type 2 diabetes, essential hypertension, vitamin B12 deficiency, anemia, who presented to the emergency room from the memory care unit at [facility] after suspected self-harm. The patient was brought to the emergency room on emergency transport order. The patient is currently a resident at the memory care unit at [facility], and according to the report, subject had several lacerations on both wrists from cutting from broken glass from a picture frame and staff had noted that they observed several suicide notes on her computer. The patient was cooperative and brought to the emergency room by [facility] for further evaluation of self-inflicted lacerations to wrists and neck. The patient reports that she currently is staying at a bed and breakfast and that she was trying to clean up broken glass and that is how she got cuts on bilateral wrists. She states that she became very upset and she was mad at herself for the cuts. She states "I got mad at myself, so I cut my neck." "I thought I should just ." The patient states that she feels like she is a burden to herself and her son. The patient reports that life was "going to hell in a handbasket." The patient reports that she feels very depressed and that she again is currently visiting here from [place], [place]. She reports that she came up approximately 1 week ago. During the interview, the patient was tearful and had a lack of eye contact. Due to her suicidal ideation and unsafe for discharge back to the memory care unit, we were asked to see and evaluate the patient for admission. PAST MEDICAL HISTORY: Significant for: 1. Hypertension. 2. Type 2 diabetes. 3. Major depressive disorder. 4. Vascular dementia with behavioral disturbances. 5. Vitamin B12 deficiency. 6. Anemia. PAST SURGICAL HISTORY: 1. Tonsillectomy. 2. Cholecystectomy. HOME MEDICATIONS: 1. Vitamin B12 1000 mcg 1 p.o. daily. 2. Duloxetine 20 mg p.o. daily. 3. Furosemide 20 mg p.o. daily. 4. Glipizide 5 mg p.o. daily. 5. Lisinopril 2.5 mg p.o. daily. 6. Metformin 500 mg 1 tablet daily. 7. Atenolol 50 mg p.o. b.i.d. 8. Milk of magnesia as needed. 9. Tylenol 325 mg 2 tablets every 6 hours as needed for pain. ALLERGIES: To SULFA. FAMILY HISTORY: According to old records, mom from old age, supposedly had a history of hypertension. Dad with a history of coronary artery disease. SOCIAL HISTORY: The patient denies any tobacco, alcohol, or illicit drug use. 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 She is . She reports that she has 2 sons, one that currently lives in [place]. REVIEW OF SYSTEMS: She denies any fever, unintended weight loss. Denies any chest pain or edema. Denies any cough, hemoptysis, or shortness of breath. No nausea, vomiting, or diarrhea. She denies any gross hematuria, dysuria, focal weakness, or sensory loss. She denies any visual complaints, dysphagia, arthralgias, myalgias. She does have abrasion and laceration, abrasions noted to bilateral wrists and linear abrasions noted to the base of her anterior neck. Psychosis: She does report depression. She is tearful. PHYSICAL EXAMINATION GENERAL: At this time, Ms. Gong is a 78-year-old female, lying on the stretcher in the emergency room. She does not appear to be in any acute distress. VITAL SIGNS: Blood pressure 167/92, heart rate was 74, respirations 18, O2 saturation 98%, temperature was 98.1. HEENT: Head is atraumatic, normocephalic. Eyes: EOMs are intact. Sclerae anicteric and not pale. Oral mucosa appeared to be moist. NECK: Supple. She does have linear abrasions noted to the base of the anterior neck that are superficial. RESPIRATORY: Lungs are clear to auscultation bilaterally. No wheezes, rales, or rhonchi. CARDIAC: S1, S2. Regular rate and rhythm. No murmurs, rubs, or gallops. ABDOMEN: Soft and nontender. Bowel sounds are present x4. EXTREMITIES: She can move all 4 extremities with 5/5 strength. NEUROLOGIC: She is awake, alert to person and place. She is confused to time and situation. SKIN: Bilateral wrists with superficial abrasions noted and superficial abrasion noted to the anterior base of her neck. PSYCHOSIS: The patient appears depressed. She does have minimal eye contact. Tearful during interview. LABORATORY DATA AND DIAGNOSTIC STUDIES: WBCs were 8.0, RBCs 4.35, hemoglobin was 13.6, hematocrit 39, platelet count 259. Sodium 141, potassium 3.5, chloride 106, carbon dioxide was 27, anion gap was 8, BUN was 16, creatinine 0.88. ASTs were 11, ALTs were 8. TSH was 1.10. Urine was within normal limits , specific gravity was 1.008. Urine toxicology was within normal limits. Salicylates were less than 2.5. Acetaminophen less than 15. Serum alcohol was less than 10. ASSESSMENT AND PLAN: Ms. Gong is a 78-year-old female with past medical history significant for hypertension, major depressive disorder, type 2 diabetes , vascular dementia with behavioral disturbance, vitamin B12 deficiency, who presented to the emergency room on on emergency transport paperwork due to self-inflicted wounds to wrists and base of neck and staff observing several suicide notes written in her computer. Due to the concern of suicidal ideation and safety, we were asked to see and evaluate her for admission. 1. Suicidal ideation. I will place the patient on one-to-one. I will get a psychiatric consult. We will continue on duloxetine and Seroquel, her duloxetine was previously prescribed, and await further recommendations from Psychiatry. 2. Hypertension. She will continue on atenolol 50 mg b.i.d., lisinopril 2.5 mg p.o. daily. 3. Vascular dementia. We will continue with supportive care. 4. FEN: She can have consistent carb, heart-healthy diet. 5. Code status: She is a DNR/DNI. She does have a MOLST form on her chart. 6. DVT prophylaxis: I will place her on heparin subcu. TIME SPENT: Time spent on this admission was 60 minutes, greater than half that time was spent [id number] with the patient obtaining my history and physical, the other half of the time was spent going over my plan of care and implementing my plan of care. I have discussed this with my attending, Dr. Mustapha Bergeron; he is in agreement with my plan. GARTH THOMASON, LEAF FAT SCRAPER [id number]/[facility] #: [id number] [facility]
[2018-10-23] MEDS: Heparin VIAL(*) 5000 UNITS/ML VIAL (FIVE THOUSAND) SUBCUT SCH (21:23)
[2018-10-24] MEDS: Heparin VIAL(*) 5000 UNITS/ML VIAL (FIVE THOUSAND) SUBCUT SCH ×3 (05:50→21:22)
[2018-10-24] MEDS ORDERED: Acetaminophen TAB* 325 MG PO PRN (09:37)
[2018-10-24] MEDS ORDERED: DULoxetine DR CAP* 20 MG CAP.DR PO SCH (10:00)
[2018-10-24] MEDS: glipiZIDE TAB* 5 MG PO SCH (11:02)
[2018-10-24] MEDS: Lisinopril TAB* 5 MG PO SCH (11:02)
[2018-10-24] MEDS: metFORMIN* 500 MG TAB PO SCH (11:03)
--- NOTE | 2018-10-24 16:15 | CONS ---
CONSULTATION REPORT: DATE OF CONSULT: 10/24/18 ATTENDING PHYSICIAN: Dr. Deep Ortiz. CONSULTING PHYSICIAN: Dr. Seth Dobbins. REASON FOR CONSULT: Depression with suicidal behavior. HISTORY OF PRESENT ILLNESS: The patient is a 78-year-old recently white female with standing diagnoses of vascular dementia, recurrent major depressive disorder, and borderline personality disorder who was sent to the emergency room by staff of the [facility] where she has been residing for several months following an episode in which she attempted to cut herself on both wrists with glass. The patient initially made superficial scratches to her wrists and then made abrasions to her neck area at the front of her neck. [facility] staff reported that she had left suicidal messages on her computer. The patient is not a reliable historian, however, and within the same interview, she can change her account of her intentions from this. When I meet with her, she initially does say that this was a suicide attempt, but later she contradicts this stating that she was "only angry at my son." One consistent aspect of the patient's story is that she does feel depressed and downhearted about her situation. She states that she does not like living in [facility] and she feels that she has the ability to live independently back in her small house in [place]. Granted she cannot recall the address of this residence nor give me any coherent plan in terms of how she would care for herself. The patient does become tearful when discussing a recent conversation she had over the phone with her son, Dariel, who has power of real estate attorney. She states , "When my , I got a settlement and now my son controls all of it. He has not even lived with me since he was 11 years old. I don't see what right he has to control all my money and tell me where I can go and where I can' t go." The patient endorses depressive symptoms such as hopelessness, helplessness, boredom, and anhedonia and she does agree that she has clinical depression. She states, however, "The medicine isn't going to do anything for me. 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 For collateral information, I did speak with her son, Dariel Jvaier, in [place], [place]. He indicates that for years, the patient has been aggressive with frequent suicidal ideations, typically in a manipulative way when she could not get what she wanted. He notes that she had extreme difficulty managing at home. At some point, she was sent from this hospital to [facility], who then sent her to the psychiatric geriatric facility in [place], [place] in October 2017. There, the patient did not participate in care and was sent back to [facility]. From there, she had another trial of independent living at home with nursing supports; however, this did not work and she ended up back in the hospital, then to [place] [place], and finally to [facility]. He does indicate that she just started working with a psychologist named Heidy Donovan, PhD, who has had 2 psychotherapy sessions so far with Renea. He is in favor of her returning to [facility] [place] with perhaps some medication changes and continued psychotherapy support in the outpatient setting. PSYCHIATRIC HISTORY: The patient was admitted to the arturo psych unit in [place], [place], in October 2017. There, she received diagnoses of vascular dementia , recurrent major depressive disorder, and borderline personality disorder. She has been on several serotonin reuptake inhibitors, but most recently duloxetine. She denies any significant history of suicidal attempts in the past. SUBSTANCE ABUSE HISTORY: Not applicable. PAST MEDICAL HISTORY: Significant for hypertension, vitamin B12 deficiency, vascular dementia, and anemia. She has had tonsillectomy and cholecystectomy procedures. HOME MEDICATIONS: Include: 1. Vitamin B12. 2. Duloxetine 20 mg p.o. daily. 3. Lasix. 4. Glipizide. 5. Lisinopril. 6. Metoprolol. 7. Atenolol. 8. Milk of Magnesia. 9. Tylenol. ALLERGIES: She is allergic to SULFA. FAMILY HISTORY: Significant for mother who of Alzheimer dementia. SOCIAL HISTORY: The patient was born in [place] while traveling with her father , who was a map surveyor helper, and her mother who was Israeli. She does have one younger brother who currently resides in [place]. The patient was later raised in [place] and was educated through the PhD level, having received an advanced degree in art history from [employer]. 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 She has been twice, her first and then marrying a psychiatrist, Dr. Velazco, here in [place]. They were together until his in September 2017. The patient denies being episcopalian or spiritual. She denies any past legal charges. Currently, her finances are managed by her son, Dariel, who has power of real estate attorney. MENTAL STATUS EXAM: The patient is an aging white female with reddish graying hair, eye glasses, wearing a patient gown, who is sitting up in bed. She is somewhat hirsute and poorly groomed. She is calm and cooperative, but later gets upset with this observer and refuses to shake my hand. Speech has a normal rate, tone, and volume. Mood appears to be depressed with a tearful constricted affect. She tends to vacillate between admitting to suicidal ideations and later denying them. She denies homicidal ideations. She denies auditory or visual hallucinations. Insight and judgment are clearly impaired given her choice of cutting herself recently. Cognitively, she is awake and alert with what would appear to be high average intellect by virtue of her educational background. She is oriented to place, but not to time and she has severe deficits in immediate and delayed recall. DIAGNOSES: [place] I: Vascular dementia. Major depressive disorder, recurrent, moderate. [place] II: Borderline personality disorder by history. ASSESSMENT: The patient is a 78-year-old recently white female with prior psychiatric diagnoses including vascular dementia, recurrent major depressive disorder, and borderline personality disorder who was sent to the hospital from the [facility] where she has been acting up lately and threatening suicide. It is clear at this point that she no longer wants to reside at [facility] [place] and believes that she can function independently in the home setting. It is well established that this is not the case and she lacks capacity to make any decisions with respect to placement. In speaking with her son, it appears the family would like perhaps some adjustment in her medications and for her to continue working with Heidy Donovan in the outpatient setting. I have spoken with the social work service, who has already been consulted, and they are working with the primary team to get the patient returned to [place]. RECOMMENDATIONS TO PRIMARY TEAM: Psychiatry will increase the patient's duloxetine from 20 to 30 mg daily. We will also add a trial of low-dose quetiapine 25 mg p.o. at bedtime in order to prevent sundowning at night. Psychiatry will continue to follow the patient. I do not believe that she would be a candidate for the BSU given her dementia pathology and I do not think sending her to a arturo psych unit is likely to be helpful given her history of nonparticipation. Thank you for the interesting consult. [id number]/[facility] #: [id number] BRYANT
[2018-10-24] MEDS: QUEtiapine TAB* 25 MG PO SCH (21:23)
[2018-10-24] MEDS: Atenolol TAB* 50 MG PO SCH (21:23)
[2018-10-25] MEDS: Heparin VIAL(*) 5000 UNITS/ML VIAL (FIVE THOUSAND) SUBCUT SCH ×3 (06:04→21:02)
[2018-10-25] MEDS: metFORMIN* 500 MG TAB PO SCH (10:32)
[2018-10-25] MEDS: Lisinopril TAB* 5 MG PO SCH (10:32)
[2018-10-25] MEDS: glipiZIDE TAB* 5 MG PO SCH (10:32)
[2018-10-25] MEDS: Cyanocobalamin TAB* 500 MCG PO SCH (10:33)
[2018-10-25] MEDS: DULoxetine DR CAP* 30 MG CAP.DR PO SCH (10:33)
[2018-10-25] MEDS: Furosemide TAB* 20 MG PO SCH (10:33)
[2018-10-25] MEDS: Atenolol TAB* 50 MG PO SCH ×2 (10:33→21:01)
--- NOTE | 2018-10-25 15:07 | CONSULT ---
Identification - Patient Identification Reason for Psychiatric Consultation: Suicidal Ideation -: Patient is a 78 year old, F admitted on 10/24/18. - MHU Identification Employment Status: Disabled Hx Psychiatric Hospitalization: Yes History - Objective HPI: Renea remains upset about her psychosocial and residential situations. "I hate that nobody is giving me any options. It's like I have no control over my own life." She continues to endorse depressed mood but denies SI. I understand from the Social Work note that [place] is no longer an option, given the need for more supervision and structure because of her acting out behaviors. Renea is tolerating the changes in her medications well and denies med side effects. She continues to demonstrate denial of her dementia diagnosis. Exam Appearance: Well Developed/Nourished Hygiene: Normal Grooming: Fairly Well Kept Psychomotor Activities: Normal Exhibits Abnormal Movement: No Attitude and Relatedness: Cooperative Eye Contact: Fair - Speech Quality: Unpressured Latencies: Normal Quantity: Appropriate Patient's Decription of Mood: "Sad" Observed Affect: Constricted Affect Consistent with: Dysphoria Patient's Thought Process: Coherent Thought Content: No Passive Wish, No Suicidal Planning, No Homicidal Ideation, No Paranoid Ideation Experiencing Hallucinations: No, Sensorium is Clear Type of Hallucinations: Visual: No, Auditory: No, Command: No Level of Consciousness: Alert Orientation: Yes Orientated to Place, Yes Orientated to Person, No Intact, No Orientated to Time Impulse Control: Poor Insight and Judgement: Impaired Impression - Impression Clinical Impression: 78 y.o. recently , white female with documented histories of vascular dementia, recurrent major depression and borderline PD who is currently admitted on longterm status to the 4-N unit due to acting out behaviors and suicidal gestures at her memory care unit home at [place]. Inpatient DSM-V Dx: F33.1 Merits Inpatient Hospitalization: No BSU: Problem List - Patient Problems (1) MDD (major depressive disorder), recurrent episode, moderate Current Visit: Yes Status: Acute Code(s): F33.1 - MAJOR DEPRESSIVE DISORDER , RECURRENT, MODERATE SNOMED Code(s): 237958138 Plan - Treatment Plan Treatment Plan: The patient continues to deny SI and is awaiting placement. She is tolerating the increase in her duloxetine to 30mg PO qday and initiation of quetiapine 25mg PO qhs. This clinician will not be available over the weekend but will return to service and follow up with the patient on October 28. Continued Medication Management: Different Medication Medications: Current Medications Acetaminophen (Tylenol Tab*) 650 mg PO Q4H PRN PRN Reason: FEVER/PAIN Acetaminophen (Tylenol Tab*) 325 mg PO Q6H PRN PRN Reason: FEVER/PAIN Atenolol (Tenormin Tab*) 50 mg PO 0900,2100 [facility] Last Admin: 10/25/18 10:33 Dose: 50 mg Cyanocobalamin (Vitamin B12 Tab*) 1,000 mcg PO DAILY [facility] Last Admin: 10/25/18 10:33 Dose: 1,000 mcg Device (Nicotine Mouth Piece*) 1 each INH ONCE PRN PRN Reason: CRAVING Duloxetine HCl (Cymbalta Cap*) 30 mg PO DAILY [facility] Last Admin: 10/25/18 10:33 Dose: 30 mg Furosemide (Lasix Tab*) 20 mg PO DAILY [facility] Last Admin: 10/25/18 10:33 Dose: 20 mg Glipizide (Glucotrol Tab*) 5 mg PO 0800 [facility] Last Admin: 10/25/18 10:32 Dose: 5 mg Heparin Sodium (Porcine) (Heparin Vial(*)) 5,000 units SUBCUT Q8HR [facility] Last Admin: 10/25/18 14:34 Dose: 5,000 units Lisinopril (Prinivil Tab*) 2.5 mg PO DAILY [facility] Last Admin: 10/25/18 10:32 Dose: 2.5 mg Metformin HCl (Glucophage*) 500 mg PO DAILY WITH MEAL [facility] Last Admin: 10/25/18 10:32 Dose: 500 mg Nicotine (Nicotine Inhaler*) 10 mg INH Q2H PRN PRN Reason: CRAVING Quetiapine Fumarate (Seroquel Tab*) 25 mg PO BEDTIME [facility] Last Admin: 10/24/18 21:23 Dose: 25 mg
[2018-10-25] MEDS: QUEtiapine TAB* 25 MG PO SCH (21:01)
[2018-10-26] MEDS: Heparin VIAL(*) 5000 UNITS/ML VIAL (FIVE THOUSAND) SUBCUT SCH ×2 (05:26→13:01)
[2018-10-26] MEDS: Lisinopril TAB* 5 MG PO SCH (08:31)
[2018-10-26] MEDS: Furosemide TAB* 20 MG PO SCH (08:31)
[2018-10-26] MEDS: Atenolol TAB* 50 MG PO SCH ×2 (08:31→21:51)
[2018-10-26] MEDS: glipiZIDE TAB* 5 MG PO SCH (08:31)
[2018-10-26] MEDS: metFORMIN* 500 MG TAB PO SCH (08:31)
[2018-10-26] MEDS: Cyanocobalamin TAB* 500 MCG PO SCH (08:31)
[2018-10-26] MEDS: DULoxetine DR CAP* 30 MG CAP.DR PO SCH (08:31)
--- NOTE | 2018-10-26 13:18 | PN ---
Subjective Date of Service: 10/26/18 Interval History: Pt seen and examined. Meds and labs reviewed. Met pt for first time this AM and claims that she does not know why she is still here and feels like nobody listens to her. On review of her chart she had been reminded of her placement plans and multiple conversations with psychiatry, w/c she claims she doesnt remember much details of. CC: N/A ROS: Denied TROY/dizziness, F/C, N/V, CP, SOB, increased cough, sputum production , abd pain, diarrhea, constipation, dysuria, myalgias, arthralgias, throat pain , and new skin lesions. The rest of the 14 point ROS are unremarkable. PHYSICAL EXAM: GEN APPEARANCE: Awake, not in acute distress HEENT: NC/AT, PERRLA, moist oral mucosa, (-) throat erythema NECK: Soft, supple, (-) cervical LAD, (-)JVD HEART: S1S2 WNL, RRR, No MRG CHEST: CTA, BL, GAE, No W/R/R ABD: Soft, ND/NT, NABS 4x Q EXT: No C/C/E SKIN: Warm to touch PSYCH: No active psychosis, hallucinations, depression, SI/HI Objective Active Medications: Acetaminophen (Tylenol Tab*) 650 mg PO Q4H PRN PRN Reason: FEVER/PAIN Acetaminophen (Tylenol Tab*) 325 mg PO Q6H PRN PRN Reason: FEVER/PAIN Atenolol (Tenormin Tab*) 50 mg PO 0900,2100 [facility] Last Admin: 10/26/18 08:31 Dose: 50 mg Cyanocobalamin (Vitamin B12 Tab*) 1,000 mcg PO DAILY [facility] Last Admin: 10/26/18 08:31 Dose: 1,000 mcg Device (Nicotine Mouth Piece*) 1 each INH ONCE PRN PRN Reason: CRAVING Duloxetine HCl (Cymbalta Cap*) 30 mg PO DAILY [facility] Last Admin: 10/26/18 08:31 Dose: 30 mg Furosemide (Lasix Tab*) 20 mg PO DAILY [facility] Last Admin: 10/26/18 08:31 Dose: 20 mg Glipizide (Glucotrol Tab*) 5 mg PO 0800 [facility] Last Admin: 10/26/18 08:31 Dose: 5 mg Heparin Sodium (Porcine) (Heparin Vial(*)) 5,000 units SUBCUT Q12H [facility] Lisinopril (Prinivil Tab*) 2.5 mg PO DAILY [facility] Last Admin: 10/26/18 08:31 Dose: 2.5 mg Metformin HCl (Glucophage*) 500 mg PO DAILY WITH MEAL [facility] Last Admin: 10/26/18 08:31 Dose: 500 mg Nicotine (Nicotine Inhaler*) 10 mg INH Q2H PRN PRN Reason: CRAVING Quetiapine Fumarate (Seroquel Tab*) 25 mg PO BEDTIME [facility] Last Admin: 10/25/18 21:01 Dose: 25 mg Vital Signs - 8 hr 10/26/18 10/26/18 10/26/18 07:18 07:21 08:00 Temperature 98.1 F Pulse Rate 62 Respiratory 18 16 Rate Blood Pressure 124/44 137/59 (mmHg) O2 Sat by Pulse 94 Oximetry Oxygen Devices in Use Now: None Result Diagrams: 10/23/18 08:55 10/23/18 08:55 Assess/Plan/Problems-Billing Assessment: - Patient Problems (1) Suicidal ideation Current Visit: Yes Status: Acute Code(s): R45.851 - SUICIDAL IDEATIONS SNOMED Code(s): 3249101 Comment: -Initial suspicion of; resolved -Subseuqent eval by psych -Appreciate psych eval and will defer (2) HTN (hypertension) Current Visit: No Status: Chronic Code(s): I10 - ESSENTIAL (PRIMARY) HYPERTENSION SNOMED Code(s): 94322697 Comment: -Well-controlled -Continue Lisinopril and Atenolol (3) Type 2 diabetes mellitus Current Visit: No Status: Chronic Comment: -Continue Heart healthy and CC diet as ordered -Continue Glipizide and Metformin for now -Monitor FS qAC/HS -HBa1c at goal (4) Dementia with behavioral disturbance Current Visit: No Status: Acute Code(s): F03.91 - UNSPECIFIED DEMENTIA WITH BEHAVIORAL DISTURBANCE SNOMED Code(s): 9121211705203 Comment: #Vascular dementia w/behavioral disturbances: -Likely cause of pts poor memory and at times confusion w/her multiple conversations w/other practitioners clearly documented -Continue Quetiapine (5) DVT prophylaxis Current Visit: No Status: Acute Code(s): EIY6537 - SNOMED Code(s): 276773603 Comment: -Given advanced age, will decrease frequency of SQ Heparin to q12H Status and Disposition: -Awaiting placement
[2018-10-26] MEDS: QUEtiapine TAB* 25 MG PO SCH (21:51)
[2018-10-27] MEDS ORDERED: Heparin VIAL(*) 5000 UNITS/ML VIAL (FIVE THOUSAND) SUBCUT SCH (01:00)
[2018-10-27] MEDS: Heparin VIAL(*) 5000 UNITS/ML VIAL (FIVE THOUSAND) SUBCUT SCH ×2 (08:48→20:35)
[2018-10-27] MEDS: glipiZIDE TAB* 5 MG PO SCH (08:48)
[2018-10-27] MEDS: Lisinopril TAB* 5 MG PO SCH (08:49)
[2018-10-27] MEDS: DULoxetine DR CAP* 30 MG CAP.DR PO SCH (08:49)
[2018-10-27] MEDS: Atenolol TAB* 50 MG PO SCH ×2 (08:49→20:34)
[2018-10-27] MEDS: Cyanocobalamin TAB* 500 MCG PO SCH (08:50)
[2018-10-27] MEDS: metFORMIN* 500 MG TAB PO SCH (08:50)
[2018-10-27] MEDS: Furosemide TAB* 20 MG PO SCH (08:50)
--- NOTE | 2018-10-27 12:58 | PN ---
Subjective Date of Service: 10/27/18 Interval History: Pt seen and examined. Meds and labs reviewed. Pt keeps on asking the same questions everyday, such as I dont know why I am hereI dont know why I can t get to decide where I want to goI dont understand why my son gets to say as to where I go, etc This despite being explained to her by multiple providers and staff during her stay. CC: N/A ROS: Denied TROY/dizziness, F/C, N/V, CP, SOB, increased cough, sputum production , abd pain, diarrhea, constipation, dysuria, myalgias, arthralgias, throat pain , and new skin lesions. The rest of the 14 point ROS are unremarkable. PHYSICAL EXAM: GEN APPEARANCE: Awake, not in acute distress HEENT: NC/AT, PERRLA, moist oral mucosa, (-) throat erythema NECK: Soft, supple, (-) cervical LAD, (-)JVD HEART: S1S2 WNL, RRR, No MRG CHEST: CTA, BL, GAE, No W/R/R ABD: Soft, ND/NT, NABS 4x Q EXT: No C/C/E SKIN: Warm to touch PSYCH: No active psychosis, hallucinations, depression, SI/HI Objective Active Medications: Acetaminophen (Tylenol Tab*) 650 mg PO Q4H PRN PRN Reason: FEVER/PAIN Acetaminophen (Tylenol Tab*) 325 mg PO Q6H PRN PRN Reason: FEVER/PAIN Atenolol (Tenormin Tab*) 50 mg PO 0900,2100 [facility] Last Admin: 10/27/18 08:49 Dose: 50 mg Cyanocobalamin (Vitamin B12 Tab*) 1,000 mcg PO DAILY [facility] Last Admin: 10/27/18 08:50 Dose: 1,000 mcg Device (Nicotine Mouth Piece*) 1 each INH ONCE PRN PRN Reason: CRAVING Duloxetine HCl (Cymbalta Cap*) 30 mg PO DAILY [facility] Last Admin: 10/27/18 08:49 Dose: 30 mg Furosemide (Lasix Tab*) 20 mg PO DAILY [facility] Last Admin: 10/27/18 08:50 Dose: 20 mg Glipizide (Glucotrol Tab*) 5 mg PO 0800 [facility] Last Admin: 10/27/18 08:48 Dose: 5 mg Heparin Sodium (Porcine) (Heparin Vial(*)) 5,000 units SUBCUT Q12HR [facility] Last Admin: 10/27/18 08:48 Dose: 5,000 units Lisinopril (Prinivil Tab*) 2.5 mg PO DAILY [facility] Last Admin: 10/27/18 08:49 Dose: 2.5 mg Metformin HCl (Glucophage*) 500 mg PO DAILY WITH MEAL [facility] Last Admin: 10/27/18 08:50 Dose: 500 mg Nicotine (Nicotine Inhaler*) 10 mg INH Q2H PRN PRN Reason: CRAVING Quetiapine Fumarate (Seroquel Tab*) 25 mg PO BEDTIME [facility] Last Admin: 10/26/18 21:51 Dose: Not Given Vital Signs - 8 hr 10/27/18 10/27/18 08:00 08:16 Temperature 97.8 F Pulse Rate 64 Respiratory 18 16 Rate Blood Pressure 126/45 (mmHg) O2 Sat by Pulse 97 Oximetry Oxygen Devices in Use Now: None Result Diagrams: 10/23/18 08:55 10/23/18 08:55 Assess/Plan/Problems-Billing Assessment: - Patient Problems (1) Suicidal ideation Current Visit: Yes Status: Acute Code(s): R45.851 - SUICIDAL IDEATIONS SNOMED Code(s): 4431519 Comment: -Initial suspicion of; resolved -Subseuqent eval by psych -Appreciate psych eval and will defer (2) HTN (hypertension) Current Visit: No Status: Chronic Code(s): I10 - ESSENTIAL (PRIMARY) HYPERTENSION SNOMED Code(s): 20966722 Comment: -Well-controlled -Continue Lisinopril and Atenolol (3) Type 2 diabetes mellitus Current Visit: No Status: Chronic Comment: -Continue Heart healthy and CC diet as ordered -Continue Glipizide and Metformin for now -Monitor FS qAC/HS -HBa1c at goal (4) Dementia with behavioral disturbance Current Visit: No Status: Acute Code(s): F03.91 - UNSPECIFIED DEMENTIA WITH BEHAVIORAL DISTURBANCE SNOMED Code(s): 8407237727296 Comment: #Vascular dementia w/behavioral disturbances: -Likely cause of pts poor memory and at times confusion w/her multiple conversations w/other practitioners clearly documented -Continue Quetiapine (5) DVT prophylaxis Current Visit: No Status: Acute Code(s): FBQ8952 - SNOMED Code(s): 102337773 Comment: -Given advanced age, will decrease frequency of SQ Heparin to q12H Status and Disposition: -Awaiting placement
[2018-10-27] MEDS: QUEtiapine TAB* 25 MG PO SCH (20:37)
[2018-10-28 06:43] LABS: Hematocrit 37 % (35-47); Hemoglobin 12.6 g/dl (12.0-16.0); Mean Corpuscular HGB Conc 35 g/dl (31-36); Mean Corpuscular Hemoglobin 31 pg (27-31); Mean Corpuscular Volume 90 fL (80-97); Mean Platelet Volume 7.9 fL (7.4-10.4); Platelet Count 221 10^3/ul (150-450); Red Blood Count 4.04 10^6/ul (4.00-5.40); Red Cell Distribution Width 14 % (10.5-15); White Blood Count 6.9 10^3/ul (3.5-10.8)
[2018-10-28 06:58] LABS: Albumin 3.6 g/dL (3.2-5.2); Albumin/Globulin Ratio 1.7 (1-3); BUN/Creatinine Ratio 23.9 (8-20); Calcium 9.2 mg/dL (8.6-10.3); Globulin 2.1 g/dL (2-4); Magnesium 1.8 mg/dL (1.9-2.7); Phosphorus 3.4 mg/dL (2.5-5.0); Potassium 3.8 mmol/L (3.5-5.0); Total Bilirubin 0.6 mg/dL (0.2-1.0); Total Protein 5.7 g/dL (6.4-8.9)
[2018-10-28] MEDS: Cyanocobalamin TAB* 500 MCG PO SCH (08:17)
[2018-10-28] MEDS: DULoxetine DR CAP* 30 MG CAP.DR PO SCH (08:17)
[2018-10-28] MEDS: Atenolol TAB* 50 MG PO SCH ×2 (08:18→20:33)
[2018-10-28] MEDS: metFORMIN* 500 MG TAB PO SCH (08:18)
[2018-10-28] MEDS: glipiZIDE TAB* 5 MG PO SCH (08:18)
[2018-10-28] MEDS: Lisinopril TAB* 5 MG PO SCH (08:18)
[2018-10-28] MEDS: Furosemide TAB* 20 MG PO SCH (08:18)
[2018-10-28] MEDS: Heparin VIAL(*) 5000 UNITS/ML VIAL (FIVE THOUSAND) SUBCUT SCH ×2 (08:19→20:34)
[2018-10-28] MEDS ORDERED: Magnesium Sulfate 2 GM IV* 2 GM/50 ML BAG IVPB ONE (09:02)
[2018-10-28] MEDS: Magnesium Oxide TAB* 400 MG PO SCH ×2 (12:46→20:34)
--- NOTE | 2018-10-28 15:25 | PN ---
Subjective Date of Service: 10/28/18 Interval History: Pt seen and examined. Meds and labs reviewed. Pt was very emotional this AM and mentions one of the major reasons is due to her husbands recent passing about 2 weeks ago. At times, she would claim that she has not been seen by a psychiatrist. Later, she expressed some suicidal thoughts to staff. Dr. Dobbins informed who mentioned will be evaluating pt later during the day and will defer. Placed pt in 1:1 until re-evaluated by Dr. Dobbins. CC: Depressed ROS: Denied TROY/dizziness, F/C, N/V, CP, SOB, increased cough, sputum production , abd pain, diarrhea, constipation, dysuria, myalgias, arthralgias, throat pain , and new skin lesions. The rest of the 14 point ROS are unremarkable. PHYSICAL EXAM: GEN APPEARANCE: Awake, not in acute distress HEENT: NC/AT, PERRLA, moist oral mucosa, (-) throat erythema NECK: Soft, supple, (-) cervical LAD, (-)JVD HEART: S1S2 WNL, RRR, No MRG CHEST: CTA, BL, GAE, No W/R/R ABD: Soft, ND/NT, NABS 4x Q EXT: No C/C/E SKIN: Warm to touch PSYCH: (+)Depressed, at the time of my visit (-)SI, later claimed to staff (+)SI Objective Active Medications: Acetaminophen (Tylenol Tab*) 650 mg PO Q4H PRN PRN Reason: FEVER/PAIN Acetaminophen (Tylenol Tab*) 325 mg PO Q6H PRN PRN Reason: FEVER/PAIN Atenolol (Tenormin Tab*) 50 mg PO 0900,2100 [facility] Last Admin: 10/28/18 08:18 Dose: 50 mg Cyanocobalamin (Vitamin B12 Tab*) 1,000 mcg PO DAILY [facility] Last Admin: 10/28/18 08:17 Dose: 1,000 mcg Device (Nicotine Mouth Piece*) 1 each INH ONCE PRN PRN Reason: CRAVING Duloxetine HCl (Cymbalta Cap*) 30 mg PO DAILY [facility] Last Admin: 10/28/18 08:17 Dose: 30 mg Furosemide (Lasix Tab*) 20 mg PO DAILY [facility] Last Admin: 10/28/18 08:18 Dose: 20 mg Glipizide (Glucotrol Tab*) 5 mg PO 0800 [facility] Last Admin: 10/28/18 08:18 Dose: 5 mg Heparin Sodium (Porcine) (Heparin Vial(*)) 5,000 units SUBCUT Q12HR [facility] Last Admin: 10/28/18 08:19 Dose: Not Given Lisinopril (Prinivil Tab*) 2.5 mg PO DAILY [facility] Last Admin: 10/28/18 08:18 Dose: 2.5 mg Magnesium Oxide (Magox 400 Tab*) 800 mg PO BID [facility] Stop: 10/30/18 11:59 Last Admin: 10/28/18 12:46 Dose: 800 mg Metformin HCl (Glucophage*) 500 mg PO DAILY WITH MEAL [facility] Last Admin: 10/28/18 08:18 Dose: 500 mg Nicotine (Nicotine Inhaler*) 10 mg INH Q2H PRN PRN Reason: CRAVING Quetiapine Fumarate (Seroquel Tab*) 25 mg PO BEDTIME [facility] Last Admin: 10/27/18 20:37 Dose: Not Given Vital Signs - 8 hr 10/28/18 10/28/18 07:38 10:18 Temperature 97.6 F Pulse Rate 61 Respiratory 17 16 Rate Blood Pressure 130/55 (mmHg) O2 Sat by Pulse 99 Oximetry Oxygen Devices in Use Now: None Result Diagrams: 10/28/18 06:25 10/28/18 06:26 Assess/Plan/Problems-Billing Assessment: - Patient Problems (1) Suicidal ideation Current Visit: Yes Status: Acute Code(s): R45.851 - SUICIDAL IDEATIONS SNOMED Code(s): 7397478 Comment: -Reccuring SI; will await re-eval by Psych -Placed pt back on 1:1 until cleared by Psych (2) HTN (hypertension) Current Visit: No Status: Chronic Code(s): I10 - ESSENTIAL (PRIMARY) HYPERTENSION SNOMED Code(s): 24039272 Comment: -Well-controlled -Continue Lisinopril and Atenolol (3) Type 2 diabetes mellitus Current Visit: No Status: Chronic Comment: -Continue Heart healthy and CC diet as ordered -Continue Glipizide and Metformin for now -Monitor FS BID as ordered -HBa1c at goal (4) Dementia with behavioral disturbance Current Visit: No Status: Acute Code(s): F03.91 - UNSPECIFIED DEMENTIA WITH BEHAVIORAL DISTURBANCE SNOMED Code(s): 5705267965381 Comment: #Vascular dementia w/behavioral disturbances: -Likely cause of pts poor memory and at times confusion w/her multiple conversations w/other practitioners clearly documented -Continue Quetiapine (5) DVT prophylaxis Current Visit: No Status: Acute Code(s): DZJ7256 - SNOMED Code(s): 031498580 Comment: -Continue SQ Heparin to q12H Status and Disposition: -Awaiting placement -On 1:1 until re-evaluated by Psych
--- NOTE | 2018-10-28 15:32 | CONSULT ---
Identification - Patient Identification Reason for Psychiatric Consultation: Suicidal Ideation -: Patient is a 78 year old, F admitted on 10/24/18. - MHU Identification Employment Status: Disabled Hx Psychiatric Hospitalization: Yes History - Objective HPI: Renea is angry today about her situation. "My son does not know me. He hasn't lived with me since he was 11 years old. How would you feel if someone like that was making decisions for you and you had to sit in a place like this?" She also asserts that she's overheard staff speaking badly about her , Cody Velazco, who was a psychiatrist at our facility a long time ago. "I heard two men speaking outside my door saying that they had to take care of Dr. Velazco's and how horrible it was because he ruined everything on the BSU." Renea asserts that she has had phone contact with her younger brother in [place], [place] and reports that he is willing to allow her to come live with him. She cannot give me any contact information to corroborate this. When asked about suicidal ideations, for which she was place back on 1:1 observations this morning, she says "Yes, if I can't get out of here I'll do it. I'll break that window and jump out or put that cord around my neck. What do I have to do to get out of this place?" Exam Appearance: Well Developed/Nourished Hygiene: Normal Grooming: Fairly Well Kept Psychomotor Activities: Normal Exhibits Abnormal Movement: No Attitude and Relatedness: Cooperative Eye Contact: Fair - Speech Quality: Unpressured Latencies: Normal Quantity: Appropriate Patient's Decription of Mood: "Sad" Observed Affect: Constricted Affect Consistent with: Dysphoria Patient's Thought Process: Coherent Thought Content: No Passive Wish, No Suicidal Planning, No Homicidal Ideation, No Paranoid Ideation Experiencing Hallucinations: No, Sensorium is Clear Type of Hallucinations: Visual: No, Auditory: No, Command: No Level of Consciousness: Alert Orientation: Yes Orientated to Place, Yes Orientated to Person, No Intact, No Orientated to Time Impulse Control: Poor Insight and Judgement: Impaired Impression - Impression Clinical Impression: 78 y.o. recently , white female with documented histories of vascular dementia, recurrent major depression and borderline PD who is currently admitted on group home status to the [facility] unit due to acting out behaviors and suicidal gestures at her memory care unit home at [place]. Inpatient DSM-V Dx: F33.1 Merits Inpatient Hospitalization: No BSU: Problem List - Patient Problems (1) MDD (major depressive disorder), recurrent episode, moderate Current Visit: Yes Status: Acute Code(s): F33.1 - MAJOR DEPRESSIVE DISORDER , RECURRENT, MODERATE SNOMED Code(s): 630215878 Plan - Treatment Plan Treatment Plan: The patient is making active suicidal threats. Although these may be manipulative in nature we will cautiously continue 1:1 for now. She is tolerating the increase in her duloxetine to 30mg PO qday but declining quetiapine 25mg PO qhs. Psych recommends continued work on placement. If SI continues we could consider referral to [facility] in [place], [place]. We will continue to follow. Continued Medication Management: Different Medication Medications: Current Medications Acetaminophen (Tylenol Tab*) 650 mg PO Q4H PRN PRN Reason: FEVER/PAIN Acetaminophen (Tylenol Tab*) 325 mg PO Q6H PRN PRN Reason: FEVER/PAIN Atenolol (Tenormin Tab*) 50 mg PO 0900,2100 [facility] Last Admin: 10/28/18 08:18 Dose: 50 mg Cyanocobalamin (Vitamin B12 Tab*) 1,000 mcg PO DAILY [facility] Last Admin: 10/28/18 08:17 Dose: 1,000 mcg Device (Nicotine Mouth Piece*) 1 each INH ONCE PRN PRN Reason: CRAVING Duloxetine HCl (Cymbalta Cap*) 30 mg PO DAILY [facility] Last Admin: 10/28/18 08:17 Dose: 30 mg Furosemide (Lasix Tab*) 20 mg PO DAILY [facility] Last Admin: 10/28/18 08:18 Dose: 20 mg Glipizide (Glucotrol Tab*) 5 mg PO 0800 [facility] Last Admin: 10/28/18 08:18 Dose: 5 mg Heparin Sodium (Porcine) (Heparin Vial(*)) 5,000 units SUBCUT Q12HR [facility] Last Admin: 10/28/18 08:19 Dose: Not Given Lisinopril (Prinivil Tab*) 2.5 mg PO DAILY [facility] Last Admin: 10/28/18 08:18 Dose: 2.5 mg Magnesium Oxide (Magox 400 Tab*) 800 mg PO BID [facility] Stop: 10/30/18 11:59 Last Admin: 10/28/18 12:46 Dose: 800 mg Metformin HCl (Glucophage*) 500 mg PO DAILY WITH MEAL [facility] Last Admin: 10/28/18 08:18 Dose: 500 mg Nicotine (Nicotine Inhaler*) 10 mg INH Q2H PRN PRN Reason: CRAVING Quetiapine Fumarate (Seroquel Tab*) 25 mg PO BEDTIME [facility] Last Admin: 10/27/18 20:37 Dose: Not Given
[2018-10-28] MEDS: QUEtiapine TAB* 25 MG PO SCH (20:35)
[2018-10-29 07:39] VITALS: BP 110/43
[2018-10-29] MEDS: DULoxetine DR CAP* 30 MG CAP.DR PO SCH (07:52)
[2018-10-29] MEDS: Lisinopril TAB* 5 MG PO SCH (07:52)
[2018-10-29] MEDS: metFORMIN* 500 MG TAB PO SCH (07:52)
[2018-10-29] MEDS: Atenolol TAB* 50 MG PO SCH (07:52)
[2018-10-29] MEDS: Furosemide TAB* 20 MG PO SCH (07:52)
[2018-10-29] MEDS: Cyanocobalamin TAB* 500 MCG PO SCH (07:52)
[2018-10-29] MEDS: Magnesium Oxide TAB* 400 MG PO SCH (07:53)
[2018-10-29] MEDS: glipiZIDE TAB* 5 MG PO SCH (07:53)
[2018-10-29] MEDS: Heparin VIAL(*) 5000 UNITS/ML VIAL (FIVE THOUSAND) SUBCUT SCH (07:56)
--- NOTE | 2018-10-29 11:36 | PN ---
Progress Note - Progress Note Date of Service: 10/29/18 Note: Time spent on discharge including exam of pt, discussion with pt, nurse, CM, Dr. Coffey, review of EMR and preparation of discharge documents is 50 minutes.
--- NOTE | 2018-10-29 11:39 | CONSULT ---
Identification - Patient Identification Reason for Psychiatric Consultation: Suicidal Ideation -: Patient is a 78 year old, F admitted on 10/24/18. - MHU Identification Employment Status: Disabled Hx Psychiatric Hospitalization: Yes History - Objective HPI: Renea is in better spirits today and denies SI. With that being said she is very unhappy about going to live in a group home in [place]. "I don't want to live there. I don't know anyone there." Ms. Gong says that in an effort to avoid going to [place] she is going to "Make your lives as miserable as I can." She says this with a smile on her face, indicating that she's going to argue with us and frustrate us in that way. The patient is adherent with antidepressant medication but not quetiapine. Exam Appearance: Well Developed/Nourished Hygiene: Normal Grooming: Fairly Well Kept Psychomotor Activities: Normal Exhibits Abnormal Movement: No Attitude and Relatedness: Cooperative Eye Contact: Fair - Speech Quality: Unpressured Latencies: Normal Quantity: Appropriate Patient's Decription of Mood: "Good" Observed Affect: Good Affect Consistent with: Euthymia Patient's Thought Process: Coherent Thought Content: No Passive Wish, No Suicidal Planning, No Homicidal Ideation, No Paranoid Ideation Experiencing Hallucinations: No, Sensorium is Clear Type of Hallucinations: Visual: No, Auditory: No, Command: No Level of Consciousness: Alert Orientation: Yes Orientated to Place, Yes Orientated to Person, No Intact, No Orientated to Time Impulse Control: Poor Insight and Judgement: Impaired Impression - Impression Clinical Impression: 78 y.o. recently , white female with documented histories of vascular dementia, recurrent major depression and borderline PD who is currently admitted on residential status to the [facility] due to acting out behaviors and suicidal gestures at her memory care unit home at [place]. Inpatient DSM-V Dx: F33.1 Merits Inpatient Hospitalization: No BSU: Problem List - Patient Problems (1) MDD (major depressive disorder), recurrent episode, moderate Current Visit: Yes Status: Acute Code(s): F33.1 - MAJOR DEPRESSIVE DISORDER , RECURRENT, MODERATE SNOMED Code(s): 786976151 Plan - Treatment Plan Treatment Plan: The patient is not suicidal and is psychiatrically cleared for discharge to the SNF in [place], [place]. She lacks capacity to refuse this. She is tolerating the increase in her duloxetine to 30mg PO qday but declining quetiapine 25mg PO qhs. We will cancel the 1:1 and she can follow up with SNF medical staff. Continued Medication Management: Different Medication Medications: Current Medications Acetaminophen (Tylenol Tab*) 650 mg PO Q4H PRN PRN Reason: FEVER/PAIN Atenolol (Tenormin Tab*) 50 mg PO 0900,2100 [facility] Last Admin: 10/29/18 07:52 Dose: 50 mg Cyanocobalamin (Vitamin B12 Tab*) 1,000 mcg PO DAILY [facility] Last Admin: 10/29/18 07:52 Dose: 1,000 mcg Device (Nicotine Mouth Piece*) 1 each INH ONCE PRN PRN Reason: CRAVING Duloxetine HCl (Cymbalta Cap*) 30 mg PO DAILY [facility] Last Admin: 10/29/18 07:52 Dose: 30 mg Furosemide (Lasix Tab*) 20 mg PO DAILY [facility] Last Admin: 10/29/18 07:52 Dose: 20 mg Glipizide (Glucotrol Tab*) 5 mg PO 0800 [facility] Last Admin: 10/29/18 07:53 Dose: 5 mg Heparin Sodium (Porcine) (Heparin Vial(*)) 5,000 units SUBCUT Q12HR [facility] Last Admin: 10/29/18 07:56 Dose: 5,000 units Lisinopril (Prinivil Tab*) 2.5 mg PO DAILY [facility] Last Admin: 10/29/18 07:52 Dose: 2.5 mg Magnesium Oxide (Magox 400 Tab*) 400 mg PO DAILY [facility] Stop: 11/01/18 08:59 Metformin HCl (Glucophage*) 500 mg PO DAILY WITH MEAL [facility] Last Admin: 10/29/18 07:52 Dose: 500 mg Nicotine (Nicotine Inhaler*) 10 mg INH Q2H PRN PRN Reason: CRAVING
--- NOTE | 2018-10-29 12:11 | TRS ---
CC: Dr. Juju Archer TRANSFER SUMMARY: DATE OF ADMISSION: DATE OF TRANSFER: 10/29/18 HISTORY OF PRESENT ILLNESS/HOSPITAL COURSE: This 78-year-old woman presented with suicidal ideation. She had been a resident at [facility] for a few months. There are different stories as to what happened. There was broken glass from a picture frame and she had sustained lacerations on both wrists. The staff said they had read suicide notes on her computer. The patient at one point was upset and said, "I got mad at myself, so I cut my neck. I thought I should just ." She had very superficial scratches on her wrists. The patient was evaluated by Dr. Dobbins. DISCHARGE DIAGNOSES: 1. Dementia. 2. Suicidal ideation. 3. Hypertension. 4. Diabetes. DISCHARGE MEDICATIONS: 1. Acetaminophen 650 mg every 4 hours p.r.n. 2. Atenolol 50 mg b.i.d. 3. Vitamin B12 at 1000 mcg daily. 4. Duloxetine 30 mg daily. 5. Furosemide 20 mg daily. 6. Glipizide 5 mg daily. 7. Lisinopril 2.5 mg daily. 8. Magnesium oxide 400 mg daily. 9. Metformin 500 mg daily. 10. Nicotine inhaler 10 mg every 2 hours p.r.n. The patient was prescribed quetiapine 25 mg h.s., but she consistently refused this. CONDITION ON DISCHARGE: Stable. DISPOSITION ON DISCHARGE: Discharged to [facility] in [place]. [id number]/[facility] #: [id number] MTDD
[2018-10-30] MEDS ORDERED: Magnesium Oxide TAB* 400 MG PO SCH (09:00)
== END 2018-10-29 16:45 | DRG 884 ==
LOC: ED 08:35 → MERGE 08:35 → UNDOADMOB 15:59 → MED 15:59 → OBSVTOIN 10-24 10:00
PROVIDERS: ADMIT Internal Medicine; ATTEND Internal Medicine
DX: F01.51 Vascular dementia, unspecified severity, with behavioral disturbance (principal); R45.851 Suicidal ideations; F33.1 Major depressive disorder, recurrent, moderate; I10 Essential (primary) hypertension; E11.9 Type 2 diabetes mellitus without complications; D51.9 Vitamin B12 deficiency anemia, unspecified; S61.512A Laceration without foreign body of left wrist, initial encounter; S61.511A Laceration without foreign body of right wrist, initial encounter; X78.0XXA Intentional self-harm by sharp glass, initial encounter; Y92.099 Unspecified place in other non-institutional residence as the place of occurrence of the external cause; Z79.84 Long term (current) use of oral hypoglycemic drugs; Z79.1 Long term (current) use of non-steroidal anti-inflammatories (NSAID); Z79.899 Other long term (current) drug therapy; Z88.2 Allergy status to sulfonamides; Z82.49 Family history of ischemic heart disease and other diseases of the circulatory system; F60.3 Borderline personality disorder
CPT/HCPCS: 36415; 80053; 80307; 80320; 80329; 81003; 83735; 84100; 84443; 85025; 85027; 99285; A9270-GY; G0378; G0480; J1644